=== PATIENT | female | born 1980 | race Two or more races ===

== ENCOUNTER → 2017-02-28 | Outpatient (REF) | payer OTHER | LOC: M LAB REF 12:24 | PROVIDERS: ATTEND Physician Assistant | DX: N39.0 Urinary tract infection, site not specified (principal) ==

== ENCOUNTER → 2019-07-30 | Outpatient (REF) | payer OTHER ==
[~2019-07-30] MED LIST: PHEN1CAP PO; SUMA50TA2; VENTAER INH; ZOLP5TAB; [UNRECOGNIZED DRUG - CODE] PO
== END ==
LOC: M LAB REF 12:21
PROVIDERS: ATTEND Physician Assistant
DX: J02.9 Acute pharyngitis, unspecified (principal); R50.9 Fever, unspecified; R05 Cough
CPT/HCPCS: 87486; 87581; 87633; 87798; U0002

== ENCOUNTER 2019-08-02 10:42 | Emergency (ER) | payer OTHER ==
[~2019-08-02] VITALS: Ht 162.6 cm; Wt 63.6 kg
[2019-08-02] MEDS ORDERED: ZOLP5TAB (10:55)
[2019-08-02] MEDS ORDERED: SUMA50TA2 (10:55)
[2019-08-02] MEDS ORDERED: PHEN1CAP PO (10:55)
[2019-08-02] MEDS ORDERED: [UNRECOGNIZED DRUG - CODE] PO (10:55)
[2019-08-02] MEDS ORDERED: VENTAER INH (12:25)
--- NOTE | 2019-08-02 12:54 | REP ---
CHEST, PORTABLE: There is no evidence of acute infiltrate. No pleural effusion is seen. The heart is normal in size. The mediastinal silhouette is unremarkable. The visualized osseous structures are intact. IMPRESSION: No acute pulmonary disease. Electronically Signed by Star Rangel MD 08/02/2019 03:19 P
[2019-08-02 13:14] VITALS: BP 126/88
== END 2019-08-02 13:21 | disposition home or self-care (01) ==
LOC: M ED 10:42
DX: J06.9 Acute upper respiratory infection, unspecified (principal); B34.9 Viral infection, unspecified; Z88.1 Allergy status to other antibiotic agents; Z88.2 Allergy status to sulfonamides; Z87.891 Personal history of nicotine dependence

== ENCOUNTER → 2019-11-03 | Outpatient (REF) | payer OTHER | LOC: M LAB REF 15:44 | PROVIDERS: ATTEND Physician Assistant | DX: R30.0 Dysuria (principal) ==

== ENCOUNTER → 2019-11-24 | Outpatient (REF) | payer OTHER | LOC: M WUC 20:34 | PROVIDERS: ATTEND Physician Assistant | DX: N39.0 Urinary tract infection, site not specified (principal) ==

== ENCOUNTER → 2019-11-30 | Outpatient (CLI) | payer OTHER ==
--- NOTE | 2020-01-21 12:04 | REP ---
AP AND LATERAL PELVIS X-RAY: 2-VIEWS HISTORY: Concern for IUD placement. Pelvic pain. FINDINGS: AP and lateral views of the pelvis demonstrate an IUD in what appears to be good position just to the right of midline anteriorly in the pelvis. The bowel gas pattern is normal. No bony abnormality is seen. The study is otherwise unremarkable. IMPRESSION: Negative pelvic x-rays. IUD in good position. MTDD
== END ==
LOC: M RAD 11:27
PROVIDERS: ATTEND Physician Assistant
DX: R10.30 Lower abdominal pain, unspecified (principal)

== ENCOUNTER → 2019-12-07 | Outpatient (REF) | payer OTHER ==
[2020-01-03 20:28] LABS: BASO # 0.1 10^3/uL (0.0-0.2); BASO % 1.7 % (0.0-1.0); EOS # 0.2 10^3/uL (0.0-0.5); LYMPH # 1.2 10^3/uL (1.5-5.0); LYMPH % 24.8 % (24.0-44.0); MEAN CORPUSCULAR HEMOGLOBIN 30.2 pg (27.0-33.0); MEAN CORPUSCULAR HGB CONC 33.3 g/dl (32.0-36.5); MEAN CORPUSCULAR VOLUME 90.5 fl (80.0-96.0); MONO # 0.6 10^3/uL (0.0-0.8); MONO % 11.7 % (0.0-5.0); NEUTROPHILS # 2.8 10^3/uL (1.5-8.5); NEUTROPHILS % 57.6 % (36.0-66.0); PLATELET COUNT, AUTOMATED 212 10^3/uL (150-450); RED BLOOD COUNT 4.31 10^6/uL (4.00-5.40)
[2020-01-04 07:30] LABS: WHITE BLOOD COUNT 4.8 10^3/uL (4.0-10.0)
== END ==
LOC: M WUC 14:38
PROVIDERS: ATTEND Physician Assistant
DX: R10.30 Lower abdominal pain, unspecified (principal)

== ENCOUNTER → 2019-12-20 | Outpatient (REF) | payer OTHER | LOC: M LAB REF 12:11 | PROVIDERS: ATTEND Physician Assistant | DX: N39.0 Urinary tract infection, site not specified (principal) ==

== ENCOUNTER → 2020-01-21 | Outpatient (REF) | payer OTHER | LOC: M LAB REF 16:05 | PROVIDERS: ATTEND Physician Assistant | DX: R30.0 Dysuria (principal) ==

== ENCOUNTER → 2020-08-18 | Outpatient (CLI) | payer OTHER | LOC: M LABSMTC 14:30 | PROVIDERS: ATTEND Anesthesiology | DX: Z01.818 Encounter for other preprocedural examination (principal); Z20.822 Contact with and (suspected) exposure to COVID-19 ==

== ENCOUNTER 2020-08-23 12:11 | Day surgery (SDC) | payer OTHER ==
[~2020-08-23] VITALS: Ht 165.1 cm; Wt 68.9 kg
[~2020-08-23 12:11] MED LIST changes: +LR 1,000 ML IV ONE
[2020-08-23] MEDS ORDERED: propofoL 200 MG/20 ML VIAL As Ordered ONE (12:37)
[2020-08-23] MEDS ORDERED: ONDANSETRON 4MG/2ML VIAL As Ordered ONE (12:37)
[2020-08-23] MEDS ORDERED: LIDOCAINE 2% 100MG/5ML SDV (FOR ANES.) As Ordered ONE (12:37)
[2020-08-23] MEDS ORDERED: fentaNYL 100 MCG/2 ML INJECTION (J3010) As Ordered ONE (12:37)
[2020-08-23] MEDS ORDERED: dexameTHASONE 4 MG/ML 1ML VIAL (J1100 PER 1MG) As Ordered ONE (12:37)
[2020-08-23] MEDS ORDERED: MIDAZOLAM INJ 2MG/2ML VIAL (J2250 PER 1MG) As Ordered ONE (12:37)
[2020-08-23] MEDS ORDERED: KETOROLAC 60MG 2ML VIAL As Ordered ONE (12:37)
--- NOTE | 2020-08-23 12:57 | ROOPDOC ---
[facility] Report Of Operation Report of Operation DATE OF PROCEDURE: 08/23/20 PREOPERATIVE DIAGNOSES: 1. Endometrial polyp POSTOPERATIVE DIAGNOSES: 1. Endometrial polyp PROCEDURE PERFORMED: Hysteroscopy, myosure, dilation and curettage. SURGEON: Sana Linares MD ROVER TENDER: None. ANESTHESIA: General via laryngeal mask airway ESTIMATED BLOOD LOSS: 5ml IV FLUIDS: 900 mL of lactated Ringer's solution. URINE OUTPUT: Not obtained. PREOPERATIVE ANTIBIOTICS: None. OPERATIVE FINDINGS: Anterior wall endometrial polyp. Bilateral ostia was visualized. DESCRIPTION OF PROCEDURE: After informed consent was obtained written consent was reviewed, the patient brought to operating room where she was placed under general anesthesia. She was then placed in lithotomy position and was prepped and draped in normal sterile fashion. Time-out in the operating room was then performed identifying the patient, procedure be performed as well as drug allergies. Sinclair speculum was placed revealing the cervix. Anterior lip of the cervix grasped with a single-tooth tenaculum. The uterus then sounded to 7.5 cm. The cervix then sequentially dilated using Hanks dilators. Hysteroscope was then advanced through the cervical os and endometrial cavity was observed with the above-noted findings. Myosure was then advanced. Endometrial polyp was morcellated. Myosure device was removed. Hysteroscope was then removed. Sharp curette was then advanced through the cervical os to the level of the fundus and the uterus curetted in a 360 degree fashion. Tissue was obtained and this was sent to pathology for evaluation. The single-tooth tenaculum was then removed. Tenaculum sites were noted be hemostatic. The speculum was then removed. The patient was then taken out of lithotomy position, was awakened from general anesthesia and taken recovery in stable condition. SANA LINARES MD. Aug 23, 2020 12:57
[2020-08-23 13:04] LABS: HEMATOCRIT 38.8 % (36.0-47.0); MEAN CORPUSCULAR HEMOGLOBIN 31.3 pg (27.0-33.0); MEAN CORPUSCULAR HGB CONC 33.5 g/dl (32.0-36.5); MEAN CORPUSCULAR VOLUME 93.5 fl (80.0-96.0); PLATELET COUNT, AUTOMATED 274 10^3/uL (150-450); RED BLOOD COUNT 4.15 10^6/uL (4.00-5.40); WHITE BLOOD COUNT 3.9 10^3/uL (4.0-10.0)
[2020-08-23] MEDS ORDERED: ePHEDrine SULFATE 25 MG/5 ML(5MG/ML) SYRINGE As Ordered ONE (13:27)
[2020-08-23] MEDS ORDERED: ACETAMINOPHEN 1000MG 100ML IV BTL (OFIRMEV) (J0131 PER 10MG) As Ordered ONE (13:32)
[2020-08-23] MEDS ORDERED: oxyCODONE 5MG TAB PO PRN (14:15)
[2020-08-23] MEDS ORDERED: fentaNYL 100 MCG/2 ML INJECTION (J3010) IV PRN (14:15)
[2020-08-23] MEDS ORDERED: ONDANSETRON 4MG/2ML VIAL IV PRN (14:15)
[2020-08-23] MEDS ORDERED: LR 1,000 ML IV SCH (14:15)
[2020-08-23] MEDS ORDERED: PERCOCET 5MG/325MG TAB PO PRN (15:15)
[2020-08-23 16:00] VITALS: BP 135/81
[2020-08-23] MEDS ORDERED: KETOROLAC 30 MG/ML 1ML VIAL IV PRN (19:00)
== END 2020-08-23 16:02 | disposition home or self-care (01) ==
LOC: M SDC 12:11
PROVIDERS: ATTEND Obstetrics & Gynecology
DX: N84.0 Polyp of corpus uteri (principal); F41.9 Anxiety disorder, unspecified; G43.909 Migraine, unspecified, not intractable, without status migrainosus; F43.10 Post-traumatic stress disorder, unspecified; Z87.440 Personal history of urinary (tract) infections; Z79.899 Other long term (current) drug therapy
CPT/HCPCS: 36415; 58558; 85027; 86850; 86900; 86901; 88305; J0131; J1100; J1885; J2250; J2405; J3010

== ENCOUNTER → 2021-03-03 | Outpatient (CLI) | payer OTHER ==
[~2021-03-03] MED LIST changes: -LR 1,000 ML IV ONE
== END ==
LOC: M LABSMTC 09:50
PROVIDERS: ATTEND Anesthesiology
DX: Z01.812 Encounter for preprocedural laboratory examination (principal); Z20.822 Contact with and (suspected) exposure to COVID-19

== ENCOUNTER 2021-03-07 10:32 | Day surgery (SDC) | payer OTHER ==
[~2021-03-07] VITALS: Ht 165.1 cm; Wt 67.5 kg
[~2021-03-07 10:32] MED LIST changes: +LIDOCAINE 1% MDV 20ML VIAL SQ PRN; +LR 1,000 ML IV ONE
--- OUTSIDE RECORDS SUMMARY | 2021-03-07 10:37 | CCD ---
Author Organization Unknown Address [address] [place] [address] Phone [phone] Care Team Providers Care Brickmason Contractor Name Role Phone [place] C[place] Unavailable Unavailable Allergies Code Code System Name Reaction Severity Status Onset NKDA Medications Name Status Start Date Stop Date cephalexin 500 mg capsule TAKE ONE CAPSULE BY MOUTH EVERY 12 HOURS FOR 7 DAYS Completed 11/22/2020 Cetrotide 0.25 mg subcutaneous kit Active Not available chorionic gonadotropin, human 10,000 unit intramuscular solution Active Not available ciprofloxacin 500 mg tablet TAKE 1 TABLET BY MOUTH TWICE A DAY FOR 5 DAYS Completed 11/22/2020 fluconazole 150 mg tablet ONE TABLET BY MOUTH NOW MAY REPEAT IN ONE WEEK NEEDED Completed 11/22/2020 Gonal-F RFF Redi-Ject 900 unit/1.5 mL subcutaneous pen injector Active Not available immunization admin fee ADMINISTRATION FEE Completed 11/22/2020 Isibloom 0.15 mg-0.03 mg tablet TAKE ONE TABLET BY MOUTH EVERY DAY ACTIVE PILLS ONLY Active Not available leuprolide 1 mg/0.2 mL subcutaneous kit Active Not available Menopur 75 unit subcutaneous solution Active Not available nitrofurantoin macrocrystal 100 mg capsu le TAKE ONE CAPSULE BY MOUTH EVERY DAY NEEDED Completed 11/22/2020 nitrofurantoin monohydrate/macrocrystals 100 mg capsule TAKE ONE CAPSULE BY MOUTH TWICE A DAY FOR 7 DAYS Completed 11/22/2020 ondansetron HCl 4 mg tablet TAKE ONE TABLET BY MOUTH EVERY 8 HOURS FOR NAUSEA Completed 11/22/2020 sulfamethoxazole 800 mg-trimethoprim 160 mg tablet TAKE ONE TABLET BY MOUTH TWICE A DAY FOR 5 DAYS Completed 11/22/2020 sumatriptan 50 mg tablet TAKE 1 TABLET BY MOUTH DIRECTED AT ONSET OF HEADACHE MAY REPEAT AFTER 2 HOURS IF HEADACHE PERSISTS Active Not available Ventolin HFA 90 mcg/actuation aerosol in haler INHALE TWO PUFFS BY MOUTH EVERY 4 TO 6 HOURS NEEDED FOR WHEEZING Completed 11/22/2020 Notes: Fertility meds Problems Name Status Onset Date Source SNOMED CT Concept Unknown 12/10/2019 History Evaluation Procedure Unknown 12/10/2019 History 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 [address] [facility]: [address] [place] [address] Normal Red Blood Count 4.15 10 4.00-5.[address] [facility]: [address] [place] [address] Normal Hemoglobin 13.0 g/dL 12.0-15.5 g/dL [facility]: [address] [place] [address] Normal Hematocrit 38.8 % 36.0-47.0 % [facility]: [address] [place] [address] Normal Mean Corpuscular Volume 93.5 fL 80.0 -96.[address] [facility]: [address] [place] [address] Normal Mean Corpuscular Hemoglobin 31.3 pg 27.0-33.[address] [facility]: [address] [place] [address] Normal Mean Corpuscular HGB Conc 33.5 g/dL 32.0-36.5 g/dL [facility]: [address] [place] [address] Normal Red Cell Distribution Width 11.9 % 1 1.5-14.5 % [facility]: [address] [place] [address] Normal Platelet Count, Automated 274 10 150 -[address] [facility]: [address] [place] [address] Normal Nucleated Red Blood Cell % 0.0 % 0- 0 % [facility]: [address] [place] [address] 08/23/2020 Type + Screen, Serum Normal Blood Type O posit sydnee [facility]: [address] [place] [address] Normal Ab Screen (Indirect Vivi)vis negat sydnee [facility]: [address] [place] [address] Past Encounters 02/02/2021 Meibomian Gland Dysfunction; Adjustment Disorder with Mixed Emotional Features [place] Cee, RPA-C: [address] [facility], [facility] [address], [place] [address], Ph. 12/15/2020 Recurrent Urinary Tract Infection [place] Cee, RPA-C: [address] [facility], [facility] [address], [place] [address], Ph. 11/22/2020 Bilateral Tinnitus; Allergic Rhinitis; Migraine [place] Cee, RPA-C: [address] [facility], [facility] [address], [place] [address], Ph. 08/08/2020 Administration of SARS-CoV-2 Antigen Vaccine Radha Rodney, INSULATION BOARD HEAD SAW OPERATOR-C: [address] [place] [address], Ph. 07/12/2020 Administration of Measles and Mumps and Rubella Vaccine Mirela Toro, RPA-C: [address] [facility], [facility] [address], [place] [address], Ph. Social History Tobacco Smoking Status Never Smoker Vaccine List Vaccine Type COVID-19 vaccine, vector-nr, rS-Ad26, PF , 0.5 mL .5 mL MMR .5 mL Plan of Care Reminders Provider Appointments None recorded. Lab None recorded. Referral None recorded. Procedures None recorded. Surgeries None recorded. Imaging None recorded. Vitals 02/02/2021 03:50PM ESTABLISHED [id number] Height Weight BMI Blood Pressure 65 in 147 lbs 6.4 oz 24.5 kg/m2 136/72 mm[Hg ] 12/15/2020 01:00PM SAME DAY 20 Height Weight BMI Blood Pressure 65 in 147 lbs 16 oz 24.6 kg/m2 114/71 mm[Hg] 11/22/2020 03:30PM ESTABLISHED [id number] Height Weight BMI Blood Pressure 65 in 151 lbs 25.1 kg/m2 117/74 mm[Hg] 12/10/2019 Height Weight BMI Blood Pressure 65 in 148 lbs 2.08 oz 24.74 kg/m2 116/76 mm[H g] 07/30/2019 Blood Pressure 129/85 mm[Hg]
--- OUTSIDE RECORDS SUMMARY | 2021-03-07 10:37 | CCD | Continuity of Care Document ---
Author Author Marisela PERRY PA Organization Unknown Address [address] [place], [place] [address] [address] Phone [phone] Care Team Providers Care Valance Cutter Name Role Phone [facility] AUTM [phone] Problems Description No Information Available Social History Type Date Description Comments Sex Unknown ETOH Use Occasionally consumes alcohol Tobacco Use Start: Unknown End: Unknown Patient is a former smoker quit 2012 Tobacco Use Start: Unknown The Patient Has Never Vaped Smoking Status Reviewed: 01/21/20 The Patient Has Never Vaped Allergies, Adverse Reactions, Alerts Description No Known Drug Allergies Medications Active Medications SIG Qnty Indications Ordering Provide r Date Sumatriptan Succinate 100mg Tablet s 1 tab by mouth as needed at onset of symptoms, may repeat in 2 hours Unknown Nicotine Mini 4mg Lozenges Unknown Medications Administered in Office Medication SIG Qnty Indications Ordering Provider Date Rocephin/Ceftriaxone Sodium Injection Pe r 250 MG Injection KEKE Novoa 0 11/29/2019 Immunizations Description No Information Available Vital Signs Date Vital Result Comment 01/21/2020 1:29pm BP Systolic 128 mmHg BP Diastolic 80 mmHg Heart Rate 78 /min Respiratory Rate 18 /min O2 % BldC Oximetry 98 % Body Temperature 98.2 F Weight 149.00 lb Height 65 inches 5'5" BMI (Body Mass Index) 24.8 kg/m2 Pain Level 3 12/20/2019 11:29am BP Systolic 126 mmHg BP Diastolic 81 mmHg Heart Rate 64 /min Respiratory Rate 20 /min O2 % BldC Oximetry 98 % Body Temperature 97.7 F Weight 149.00 lb Height 65 inches 5'5" BMI (Body Mass Index) 24.8 kg/m2 Pain Level 4 Results Description No Information Available Procedures Description No Information Available Medical Devices Description No Information Available Encounters Description No Information Available Assessments Date Code Description Provider 01/07/2021 Z20.828 Contact with and (ramon spected) exposure to other viral communicable diseases KEKE Novoa Plan of Treatment No Information Available Functional Status Description No Information Available Mental Status Description No Information Available Referrals Description No Information Available
--- OUTSIDE RECORDS SUMMARY | 2021-03-07 10:37 | CCD ---
Author Organization Unknown Address [address] [place] [address] Phone [phone] Care Team Providers Care Air Hose Coupler Name Role Phone [place] Cee Unavailable Unavailable Allergies Code Code System Name Reaction Severity Status Onset NKDA Medications Name Status Start Date Stop Date cephalexin 500 mg capsule TAKE ONE CAPSULE BY MOUTH EVERY 12 HOURS FOR 7 DAYS Completed 11/22/2020 Cetrotide 0.25 mg subcutaneous kit Completed 11/22/2020 chorionic gonadotropin, human 10,000 unit intramuscular solution Completed 11/22/2020 ciprofloxacin 500 mg tablet TAKE 1 TABLET BY MOUTH TWICE A DAY FOR 5 DAYS Completed 11/22/2020 fluconazole 150 mg tablet ONE TABLET BY MOUTH NOW MAY REPEAT IN ONE WEEK NEEDED Completed 11/22/2020 Gonal-F RFF Redi-Ject 900 unit/1.5 mL subcutaneous pen injector Completed 11/22/2020 immunization admin fee ADMINISTRATION FEE Completed 11/22/2020 Isibloom 0.15 mg-0.03 mg tablet Active 11/22/2020 Not available leuprolide 1 mg/0.2 mL subcutaneous kit Completed 11/22/2020 Menopur 75 unit subcutaneous solution Completed 11/22/2020 nitrofurantoin macrocrystal 100 mg capsu le TAKE [...] 6 HOURS NEEDED FOR WHEEZING Completed 11/22/2020 Problems Name Status Onset Date Source SNOMED CT Concept Active 12/10/2019 History Evaluation Procedure Active 12/10/2019 History Migraine Active 07/28/2020 Procedures Notes: No known surgical history Results Lab Results Date Name Specimen Result Interpretation Description Value Range Status Address 08/23/2020 Cbc Low White Blood Count 3.9 10 4.0-10. 0 10 [facility]: [address] [place] [address] Normal Red Blood Count 4.15 10 4.00-5.40 10 [facility]: [address] [place] [address] Normal Hemoglobin 13.0 g/dL 12.0-15.5 g/dL [facility]: [address] [place] [address] Normal Hematocrit 38.8 % 36.0-47.0 % [facility]: [address] [place] [address] Normal Mean Corpuscular Volume 93.5 fL 80.0 -96.0 fL [facility]: [address] [place] [address] Normal Mean Corpuscular Hemoglobin 31.3 pg 27.0-33.0 pg [facility]: [address] [place] [address] Normal Mean Corpuscular HGB Conc 33.5 g/dL 32.0-36.5 g/dL [facility]: [address] [place] [address] Normal Red Cell Distribution Width 11.9 % 1 1.5-14.5 % [facility]: [address] [place] [address] Normal Platelet Count, Automated 274 10 150 -450 10 [facility]: [address] [place] [address] Normal Nucleated Red Blood Cell % 0.0 % 0- 0 % [facility]: [address] [place] [address] 08/23/2020 Type + Screen, Serum Normal Blood Type O posit sydnee [facility]: [address] [place] [address] Normal Ab Screen (Indirect Vivi)vis negat sydnee [facility]: [address] [place] [address] Past Encounters 11/22/2020 Bilateral Tinnitus; Allergic Rhinitis; Migraine [place] Cee, RPA-C: [address] [facility], [address], [place] [address], Ph. 08/08/2020 SARS-CoV-2 Vaccination VINITA Conte-C: [address] [place] [address], Ph. 07/12/2020 Administration of Measles and Mumps and Rubella Vaccine Mirela Toro RPA-C: [address] [facility], [address], [place] [address], Ph. Social History None recorded. Vaccine List Vaccine Type COVID-19 vaccine, vector-nr, rS-Ad26, PF , 0.5 mL .5 mL MMR .5 mL Plan of Care Reminders Provider Appointments None recorded. Lab None recorded. Referral None recorded. Procedures None recorded. Surgeries None recorded. Imaging None recorded. Vitals 11/22/2020 03:30PM ESTABLISHED [id number] Height Weight BMI Blood Pressure 65 in 151 lbs 25.1 kg/m2 117/74 mm[Hg] 12/10/2019 Height Weight BMI Blood Pressure 65 in 148 lbs 2.08 oz 24.74 kg/m2 116/76 mm[H g] 07/30/2019 Blood Pressure 129/85 mm[Hg]
--- OUTSIDE RECORDS SUMMARY | 2021-03-07 10:37 | CCD ---
Author Organization Unknown Address [address] [place] [address] Phone [phone] Care Team Providers Care Service Desk Associate Name Role Phone [place] Cee Unavailable Unavailable [...] Count 3.9 10 4.0-10. [address] [facility] [place]: [address] [place] [address] Normal Red Blood Count 4.15 10 4.00-5.[address] [facility] [place]: [address] [place] [address] Normal Hemoglobin 13.0 g/dL 12.0-15.5 g/dL [facility] [place]: [address] [place] [address] Normal Hematocrit 38.8 % 36.0-47.0 % [facility] [place]: [address] [place] [address] Normal Mean Corpuscular Volume 93.5 fL 80.0 -96.[address] [facility] [place]: [address] [place] [address] Normal Mean Corpuscular Hemoglobin 31.3 pg 27.0-33.[address] [facility] [place]: [address] [place] [address] Normal Mean Corpuscular HGB Conc 33.5 g/dL 32.0-36.5 g/dL [facility] [place]: [address] [place] [address] Normal Red Cell Distribution Width 11.9 % 1 1.5-14.5 % [facility] [place]: [address] [place] [address] Normal Platelet Count, Automated 274 10 150 -[address] [facility] [place]: [address] [place] [address] Normal Nucleated Red Blood Cell % 0.0 % 0- 0 % [facility] [place]: [address] [place] [address] 08/23/2020 Type + Screen, Serum Normal Blood Type O posit sydnee [facility] [place]: [address] [place] [address] Normal Ab Screen (Indirect Vivi)vis negat sydnee [facility] [place]: [address] [place] [address] Past Encounters 12/15/2020 Recurrent Urinary Tract Infection [place] Cee, RPA-C: [address] [facility], [facility] [address], [place] [address], Ph. 11/22/2020 Bilateral Tinnitus; Allergic Rhinitis; Migraine [place] Cee, RPA-C: [address] [facility], [facility] [address], [place] [address], Ph. 08/08/2020 SARS-CoV-2 Vaccination Radha Stevens, MOLD RELEASE WORKER-C: [address] [place] [address], Ph. 07/12/2020 Administration of Measles and Mumps and Rubella Vaccine Mirela Toro, RPA-C: [address] [facility], [facility] [address], [place] [address], Ph. Social History Tobacco Smoking Status Never Smoker Vaccine List Vaccine Type COVID-19 vaccine, vector-nr, rS-Ad26, PF , 0.5 mL .5 mL MMR .5 mL Plan of Care Reminders Provider Appointments None recorded. Lab None recorded. Referral None recorded. Procedures None recorded. Surgeries None recorded. Imaging None recorded. Vitals 12/15/2020 01:00PM SAME DAY 20 Height Weight BMI Blood Pressure 65 in 147 lbs 16 oz 24.6 kg/m2 114/71 mm[Hg] 11/22/2020 03:30PM ESTABLISHED [id number] Height Weight BMI Blood Pressure 65 in 151 lbs 25.1 kg/m2 117/74 mm[Hg] 12/10/2019 Height Weight BMI Blood Pressure 65 in 148 lbs 2.08 oz 24.74 kg/m2 116/76 mm[H g] 07/30/2019 Blood Pressure 129/85 mm[Hg]
--- OUTSIDE RECORDS SUMMARY | 2021-03-07 10:37 | CCD | Continuity of Care Document ---
Author Author Marisela PERRY PA Organization Unknown Address [address] [place], [place] [address] [place] [address] Phone [phone] Care Team Providers Care Emr Analyst Name Role Phone [facility] AUTM [phone] Problems Description No Information Available Social History [...] Available Encounters Description No Information Available Assessments Description No Information Available Plan of Treatment No Information Available Functional Status Description No Information Available Mental Status Description No Information Available Referrals Description No Information Available
--- OUTSIDE RECORDS SUMMARY | 2021-03-07 10:38 | CCD ---
Author Author [facility] Organization [facility] Address Unknown Phone Unavailable Care Team Providers Care Distance Education Teacher Name Role Phone CEE, CYN HOUSTON RPA-C Unavailable Unavailable CEE, CYN HOUSTON RPA-C Unavailable Unavailable CEE, CYN HOUSTON RPA-C Unavailable Unavailable CEE, CYN HOUSTON RPA-C Unavailable Unavailable CEE, CYN HOUSTON RPA-C Unavailable Unavailable CEE, CYN HOUSTON RPA-C Unavailable Unavailable CEE, CYN HOU[place]ON RPA-C Unavailable Unavailable CEE, CYN HOUSTON RPA-C Unavailable Unavailable CEE, CYN HOUSTON RPA-C Unavailable Unavailable CEE, CYN HOUSTON RPA-C Unavailable Unavailable CEE, CYN HOU[place]ON RPA-C Unavailable Unavailable CEE, CYN HOUSTON RPA-C Unavailable Unavailable CEE, CYN HOUSTON RPA-C Unavailable Unavailable CEE, CYN HOUSTON RPA-C Unavailable Unavailable CEE, CYN HOUSTON RPA-C Unavailable Unavailable CEE, CYN HOUSTON RPA-C Unavailable Unavailable CEE, CYN HOUSTON RPA-C Unavailable Unavailable CEE, CYN HOUSTON RPA-C Unavailable Unavailable CEE, CYN HOUSTON RPA-C Unavailable Unavailable CEE, CYN HOUSTON RPA-C Unavailable Unavailable CEE, CYN HOUSTON RPA-C Unavailable Unavailable CEE, CNY HOUSTON RPA-C Unavailable Unavailable CEE, CYN HOUSTON RPA-C Unavailable Unavailable CEE, CYN HOUSTON RPA-C Unavailable Unavailable CEE, CYN HOUSTON RPA-C Unavailable Unavailable CEE, CYN HOUSTON RPA-C Unavailable Unavailable CEE, CYN HOUSTON RPA-C Unavailable Unavailable CEE, CYN HOUSTON RPA-C Unavailable Unavailable CEE, CYN HOUSTON RPA-C Unavailable Unavailable CEE, CYN HOUSTON RPA-C Unavailable Unavailable CEE, CYN HOUSTON RPA-C Unavailable Unavailable CEE, CYN HOUSTON RPA-C Unavailable Unavailable CEE, CYN HOUSTON RPA-C Unavailable Unavailable CEE, CYN HOUSTON RPA-C Unavailable Unavailable CEE, CYN HOUSTON RPA-C Unavailable Unavailable CEE, CYN HOUSTON RPA-C Unavailable Unavailable CEE, CYN HOUSTON RPA-C Unavailable Unavailable CEE, CYN HOUSTON RPA-C Unavailable Unavailable CEE, CYN HOUSTON RPA-C Unavailable Unavailable CEE, CYN HOUSTON RPA-C Unavailable Unavailable CEE, CYN HOUSTON RPA-C Unavailable Unavailable CEE, CYN HOUSTON RPA-C Unavailable Unavailable CEE, CYN HOUSTON RPA-C Unavailable Unavailable Marcos, Guillermina Womack PA Unavailable Unavailable Marcos, Guillermina Womack PA Unavailable Unavailable Marcos, Guillermina Womack PA Unavailable Unavailable Marcos, Guillermina Womack PA Unavailable Unavailable Marcos, Guillermina Womack PA Unavailable Unavailable Marcos, Guillermina Womack PA Unavailable Unavailable Marcos, Guillermina Womack PA Unavailable Unavailable Marcos, Guillermina Womack PA Unavailable Unavailable Marcos, Guillermina Womack PA Unavailable Unavailable Marcos, Guillermina Womack PA Unavailable Unavailable [facility], Britany Unavailable [facility], Britany Unavailable Mahany, Britany Unavailable Mahany, Britany Unavailable Mahany, Britany Unavailable Mahany, Britany Unavailable Mahany, Britany Unavailable Mahany, Britany Unavailable Mahany, Britany Unavailable Mahany, Britany Unavailable Mahany, Britany Unavailable Mahany, Britany Unavailable Mahany, Britany Unavailable Mahany, Britany Unavailable Mahany, Britany Unavailable Mahany, Britany Unavailable Mahany, Britany Unavailable Mahany, Britany Unavailable Mahany, Britany Unavailable Mahany, Britany Unavailable Mahany, Britany Unavailable CHRIS, ALISSA Unavailable Unavailable CHRIS, ALISSA Unavailable Unavailable CHRIS, ALISSA Unavailable Unavailable CHRIS, ALISSA Unavailable Unavailable CHRIS, ALISSA Unavailable Unavailable CHRIS, ALISSA Unavailable Unavailable CHRIS, ALISSA Unavailable Unavailable CHRIS, ALISSA Unavailable Unavailable CHRIS, ALISSA Unavailable Unavailable CHRIS, ALISSA Unavailable Unavailable CHRIS, ALISSA Unavailable Unavailable CHRIS, ALISSA Unavailable Unavailable CHRIS, ALISSA Unavailable Unavailable CHRIS, ALISSA Unavailable Unavailable CHRIS, ALISSA Unavailable Unavailable CHRIS, ALISSA Unavailable Unavailable CHRIS, ALISSA Unavailable Unavailable CHRIS, ALISSA Unavailable Unavailable CHRIS, ALISSA Unavailable Unavailable CHRIS, ALISSA Unavailable Unavailable CHRIS, ALISSA Unavailable Unavailable CHRIS, ALISSA Unavailable Unavailable CHRIS, ALISSA Unavailable Unavailable CHRIS, ALISSA Unavailable Unavailable CHRIS, ALISSA Unavailable Unavailable CHRIS, ALISSA Unavailable Unavailable CHRIS, ALISSA Unavailable Unavailable Stevens, Denver Radha Unavailable Unavailable Stevens, Denver Radha Unavailable Unavailable Stevens, Denver Radha Unavailable Unavailable Stevens, Denver Radha Unavailable Unavailable Stevens, Denver Radha Unavailable Unavailable Stevens, Denver Radha Unavailable Unavailable Stevens, Denver Radha Unavailable Unavailable Stevens, Denver Radha Unavailable Unavailable Stevens, Denver Radha Unavailable Unavailable Stevens, Denver Radha Unavailable Unavailable Stevens, Denver Radha Unavailable Unavailable Stevens, Denver Ardha Unavailable Unavailable Stevens, Denver Radha Unavailable Unavailable ALEKSICASHISH MD Unavailable Unavailable ALEKSICASHISH MD Unavailable Unavailable ALEKSIC ILICELSA MD Unavailable Unavailable ALEKSIC ILICELSA MD Unavailable Unavailable ALEKSIC ILICELSA MD Unavailable Unavailable ALEKSICASHISH MD Unavailable Unavailable ALEKSICASHISH MD Unavailable Unavailable ALEKSICASHISH MD Unavailable Unavailable ALEKSIC ILICELSA MD Unavailable Unavailable ALEKSIC ILICELSA MD Unavailable Unavailable ALEKSIC ILICELSA MD Unavailable Unavailable ALEKSIC ILICELSA MD Unavailable Unavailable ALEKSIC ILICELSA MD Unavailable Unavailable ALEKSIC ILICELSA MD Unavailable Unavailable ALEKSIC ILICELSA MD Unavailable Unavailable ALEKSIC ILICELSA MD Unavailable Unavailable ALEKSIC ILICELSA MD Unavailable Unavailable ALEKSIC ILICELSA MD Unavailable Unavailable ALEKSIC ILICELSA MD Unavailable Unavailable ALEKSIC ILICELSA MD Unavailable Unavailable ALEKSIC ILICELSA MD Unavailable Unavailable ALEKSIC ILICELSA MD Unavailable Unavailable ALEKSIC ILICELSA MD Unavailable Unavailable ALEKSIC ILICELSA MD Unavailable Unavailable ALEKSIC ILICELSA MD Unavailable Unavailable ALEKSIC ILICELSA MD Unavailable Unavailable ALEKSIC ILICELSA MD Unavailable Unavailable ALEKSIC ILICELSA MD Unavailable Unavailable ALEKSIC ILICELSA MD Unavailable Unavailable ALEKSIC ILICELSA MD Unavailable Unavailable ALEKSIC ILICELSA MD Unavailable Unavailable ALEKSIC ILICELSA MD Unavailable Unavailable ALEKSIC ILICELSA MD Unavailable Unavailable ALEKSIC ILICELSA MD Unavailable Unavailable ALEKSICASHISH MD Unavailable Unavailable Re-disclosure Warning The records that you are about to access may contain information from federally-assisted alcohol or drug abuse programs. If such information is present, then the following federally mandated warning applies: This information has been disclosed to you from records protected by federal confidentiality rules (42 CFR part 2). The federal rules prohibit you from making any further disclosure of this information unless further disclosure is expressly permitted by the written consent of the person to whom it pertains or as otherwise permitted by 42 CFR part 2. A general authorization for the release of medical or other information is NOT sufficient for this purpose. The Federal rules restrict any use of the information to criminally investigate or prosecute any alcohol or drug abuse patient.The records that you are about to access may contain highly sensitive health information, the redisclosure of which is protected by Article 27-F of the [facility] Public Health law. If you continue you may have access to information: Regarding HIV / AIDS; Provided by facilities licensed or operated by the [facility] Office of Mental Health; or Provided by the [facility] Office for People With Developmental Disabilities. If such information is present, then the following [facility] mandated warning applies: This information has been disclosed to you from confidential records which are protected by state law. State law prohibits you from making any further disclosure of this information without the specific written consent of the person to whom it pertains, or as otherwise permitted by law. Any unauthorized further disclosure in violation of state law may result in a fine or longterm sentence or both. A general authorization for the release of medical or other information is NOT sufficient authorization for further disc losure. Allergies and Adverse Reactions Type Description Substance Reaction Status Data Source(s ) Allergy to substance Allergy to substance Allergy to substance ANGELITA ([facility]) Family History Family Member Name Family Member Gender Family Member Status Date o f Status Description Data Source(s) Unknown Unknown Problem MEDENT ([facility]) Unknown Unknown Problem MEDENT ([facility] mgf Unknown Male Problem MEDENT ([facility] Unknown Male Problem MEDENT ([facility]) Encounters Encounter Providers Location Date Indications Data Source(s ) Unknown [address] [facility] [address] 03/02/2021 12:00:00 AM EDT eCW1 ([facility]) [place] Cee, RPA-C: [address], [place] [address], Ph. Attender: HOUST[place] CEE RPA-C [facility] Medical 02/02/2021 12:00:00 AM EDT ANGELITA ([facility]) [place] Cee, RPA-C: [address], [place] [address], Ph. Attender: [place] CEE RPA-C [facility] Medical 12/15/2020 12:00:00 AM EDT ANGELITA ([facility]) [place] Cee, RPA-C: [address], [place] [address], Ph. Attender: [place] CEE RPA-C [facility] Medical 12/15/2020 12:00:00 AM EDT ANGELITA ([facility]) [place] Cee, RPA-C: [address], [place] [address], Ph. Attender: [place]ST[place] CEE RPA-C [facility] Medical 11/22/2020 12:00:00 AM EDT ANGELITA ([facility]) [place] Cee, RPA-C: [address], [place] [address], Ph. Attender: [place] CEE RPA-C [facility] Medical 11/22/2020 12:00:00 AM EDT ANGELITA ([facility]) [place] Cee RPA-C: [address], [place] [address], Ph. Attender: HOUSTON HERNANDEZC [facility] Medical 11/22/2020 12:00:00 AM EDT ANGELITA ([facility]) CINDY ConteC: [address] [place] [address], Ph. Attender: Radha Stevens [facility] Medical 08/08/2020 12:00:00 AM EDT ANGELITA ([facility]) CINDY ConteC: [address] [place] [address], Ph. Attender: Radha Stevens [facility] Medical 08/08/2020 12:00:00 AM EDT ANGELITA ([facility]) CINDY ConteC: [address] [place] [address], Ph. Attender: Radha Stevens [facility] Medical 08/08/2020 12:00:00 AM EDT ANGELITA ([facility]) CINDY ConteC: [address] [place] [address], Ph. Attender: Radha Stevens [facility] Medical 08/08/2020 12:00:00 AM EDT ANGELITA ([facility]) Unknown [address] [facility] [address] 07/27/2020 12:00:00 AM EDT eCW1 ([facility]) Out[place] [address] [facility] [place] [address] 07/21/2020 12:00:00 AM EDT eCW1 ([facility]) Referrer: Britayn Nuñez 07/19/2020 01:37:02 PM E DT Sema4 ([facility]) Alissa Chris, RPA-C: [address], [place] [address], Ph. Attender: ALISSA [facility]TER[facility]INS [facility] Medical 07/12/2020 12:00:00 AM EST ANGELITA ([facility]) Alissa Cortez RPA-C: [address], [place] [address], Ph. Attender: ALISSA [facility] Medical 07/12/2020 12:00:00 AM EST ANGELITA ([facility]) Alissa Chris RPA-C: [address], [place] [address], Ph. Attender: ALISSANEEL CHRIS [facility] Medical 07/12/2020 12:00:00 AM EST ANGELITA ([facility]) Alissa Chris RPA-C: [address], [place] [address], Ph. Attender: ALISSA WALTERSBINS [facility] Medical 07/12/2020 12:00:00 AM [facility] ([facility]) [facility] EN[facility] 05/10/2020 12:00:00 AM EST eCW1 ([facility]) Outpatient [facility] 05/04/2020 12:00:00 AM EST eCW1 ([facility]) Outpatient Attender: ASHISH Jane/ AKathrynP. Urolog y 02/11/2020 01:30:00 PM EDT MEDENT ([facility]) Outpatient Attender: Shanta irizarry 01/21/2020 02:00:00 PM EDT MEDENT ([facility]) Immunizations Vaccine Date Status Description Data Source(s) COVID-19 vaccine, vector-nr, rS-Ad26, PF, 0.5 mL 08/09/2020 10:25:09 AM EDT completed .5 mL [facility] ([facility]) COVID-19 vaccine, vector-nr, rS-Ad26, PF, 0.5 mL 08/09/2020 10:25:09 AM EDT completed .5 mL [facility] ([facility]) COVID-19 vaccine, vector-nr, rS-Ad26, PF, 0.5 mL 08/09/2020 10:25:09 AM EDT completed .5 mL ANGELITA ([facility]) COVID-19 vaccine, vector-nr, rS-Ad26, PF, 0.5 mL 08/09/2020 10:25:09 AM EDT completed .5 mL [facility] ([facility]) COVID-19 VACCINE Abigail 08/09/2020 12:00:00 AM EDT completed [place] Vaccine Series Complete: YESThis Data wa s Submitted to [facility] Via [employer]. MMR 07/12/2020 12:30:00 PM EST completed 07/12/2020 0.5 mL [facility] ([facility]) MMR 07/12/2020 12:30:00 PM EST completed 07/12/2020 0.5 mL [facility] ([facility]) MMR 07/12/2020 12:30:00 PM EST completed 07/12/2020 0.5 mL ANGELITA ([facility]) MMR 07/12/2020 12:30:00 PM EST completed 07/12/2020 0.5 mL [facility] ([facility]) INFLUENZA VIRUS VACCINE QUADRIVAL (6 MOS AND UP)/PF 03/21/2020 12:00:00 AM EST completed [facility] Medications Medication Brand Name Start Date Product Form Dose Route Admi nistrative Instructions Pharmacy Instructions Status Indications Reaction Description Data Source(s) Isibloom 0.15 mg-0.03 mg tablet [id number] 11/22/2020 12:00:00 AM EDT completed Isibloom 0.15 mg-0.03 mg tablet ANGELITA ([facility]) Isibloom 0.15 mg-0.03 mg tablet [id number] 11/22/2020 12:00:00 AM EDT completed Isibloom 0.15 mg-0.03 mg tablet ANGELITA ([facility]) 50 mg 10/27/2020 12:00:00 AM EDT tablet 6 TAKE 1 TABLET BY MOUTH DIRECTED AT ONSET OF HEADACHE MAY REPEAT AFTER 2 HOURS IF HEADACHE PERSISTS TAKE 1 TABLET BY MOUTH DIRECTED AT ONSET OF HEADACHE MAY REPEAT AFTER 2 HOURS IF HEADACHE PERSISTS SOLD: 10/28/2020 [facility] 50 mg 10/27/2020 12:00:00 AM EDT tablet 6 TAKE 1 TABLET BY MOUTH DIRECTED AT ONSET OF HEADACHE MAY REPEAT AFTER 2 HOURS IF HEADACHE PERSISTS TAKE 1 TABLET BY MOUTH DIRECTED AT ONSET OF HEADACHE MAY REPEAT AFTER 2 HOURS IF HEADACHE PERSISTS SOLD: 12/03/2020 [facility] 50 mg 07/29/2020 12:00:00 AM EDT tablet 6 TAKE ONE TABLET BY MOUTH DIRECTED AT ONSET OF HEADACHE MAY REPEAT AFTER 2 HOURS IF HEADACHE PERSISTS TAKE ONE TABLET BY MOUTH DIRECTED AT ONSET OF HEADACHE MAY REPEAT AFTER 2 HOURS IF HEADACHE PERSISTS SOLD: 07/31/2020 [facility] 50 mg 05/05/2020 12:00:00 AM EST tablet 6 TAKE 1 TABLET BY MOUTH AT ONSET OF HEADACHE MAY REPEAT AFTER 2 HOURS IF HEADACHE PERSISTS DIRECTED TAKE 1 TABLET BY MOUTH AT ONSET OF HEADACHE MAY REPEAT AFTER 2 HOURS IF HEADACHE PERSISTS DIRECTED SOLD: 05/10/2020 [facility] 50 mg 03/31/2020 12:00:00 AM EST tablet 6 TAKE ONE TABLET BY MOUTH AT ONSET OF HEADACHE, MAY REPEAT IN TWO HOURS IF NECESSARY TAKE ONE TABLET BY MOUTH AT ONSET OF HEADACHE, MAY REPEAT IN TWO HOURS IF NECESSARY SOLD: 03/31/2020 [facility] . UNIT 03/21/2020 12:00:00 AM EST Injectable 1 AD MINISTRATION FEE ADMINISTRATION FEE SOLD: 03/21/2020 [facility] NITROFURANTOIN, MACROCRYSTALS 100 MG Oral Capsule Nitrofuran toin Macrocrystal 02/11/2020 12:00:00 AM EDT ORAL active MEDENT ([facility]) 100 mg 01/21/2020 12:00:00 AM EDT capsule 14 TAKE ONE CAPSULE BY MOUTH TWICE A DAY FOR 7 DAYS TAKE ONE CAPSULE BY MOUTH TWICE A DAY FOR 7 DAYS SOLD: 01/21/2020 [facility] NITROFURANTOIN, MACROCRYSTALS 25 MG / Ni trofurantoin, Monohydrate 75 MG Oral Capsule Nitrofurantoin Monohydrate/Macrocrystals 01/21/2020 12:00:00 AM EDT active MEDENT ([facility]) immunization admin fee ADMINISTRATION FEE completed immunization admin fee ANGELITA ([facility]) NITROFURANTOIN, MACROCRYSTALS 100 MG Ora l Capsule nitrofurantoin macrocrystal 100 mg capsule TAKE ONE CAPSULE BY MOUTH EVERY DAY NEEDED nitrofurantoin macrocrystal 100 mg capsule TAKE ONE CAPSULE BY MOUTH EVERY DAY NEEDED completed nitrofurantoin, macr ocrystals 100 MG Oral Capsule ANGELITA ([facility]) immunization admin fee ADMINISTRATION FEE completed immunization admin fee [facility] ([facility]) Leuprolide Acetate 5 MG/ML Injectable So lution leuprolide 1 mg/0.2 mL subcutaneous kit leuprolide 1 mg/0.2 mL subcutaneous kit completed leuprolide acetate 5 MG/ML Injectable So lution [facility] ([facility]) 200 ACTUAT Albuterol 0.09 MG/ACTUAT Mete red Dose Inhaler [Ventolin] Ventolin HFA 90 mcg/actuation aerosol inhaler INHALE TWO PUFFS BY MOUTH EVERY 4 TO 6 HOURS NEEDED FOR WHEEZING Ventolin HFA 90 mcg/actuation aerosol in haler INHALE TWO PUFFS BY MOUTH EVERY 4 TO 6 HOURS NEEDED FOR WHEEZING completed [id number] 200 ACTUAT albuter ol 0.09 MG/ACTUAT Metered Dose Inhaler [Ventolin] [facility] ([facility]) Follicle Stimulating Hormone 75 UNT/ML / Luteinizing Hormone 75 UNT/ML Injectable Solution [Menopur] Menopur 75 unit subcutaneous solution Menopur 75 unit subcutaneous solution completed follicle stimulating hormone 75 UNT / luteinizing hormone 75 UNT Injection [Menopur] [facility] ([facility]) Follicle Stimulating Hormone 75 UNT/ML / Luteinizing Hormone 75 UNT/ML Injectable Solution [Menopur] Menopur 75 unit subcutaneous solution Menopur 75 unit subcutaneous solution completed follicle stimulating hormone 75 UNT / luteinizing hormone 75 UNT Injection [Menopur] [facility] ([facility]) Fluconazole 150 MG Oral Tablet fluconazo le 150 mg tablet ONE TABLET BY MOUTH NOW MAY REPEAT IN ONE WEEK NEEDED fluconazole 150 mg tablet ONE TABLET BY MOUTH NOW MAY REPEAT IN ONE WEEK NEEDED completed fluconazole 150 MG Oral Tablet ANGELITA ([facility]) NITROFURANTOIN, MACROCRYSTALS 25 MG / Ni trofurantoin, Monohydrate 75 MG Oral Capsule nitrofurantoin monohydrate/macrocrystals 100 mg capsule TAKE ONE CAPSULE BY MOUTH TWICE A DAY FOR 7 DAYS nitrofurantoin monohydrate/macrocrystals 100 mg capsule TAKE ONE CAPSULE BY MOUTH TWICE A DAY FOR 7 DAYS completed nitrofurantoin, macrocrystal s 25 MG / nitrofurantoin, monohydrate 75 MG Oral Capsule ANGELITA ([facility]) Sulfamethoxazole 800 MG / Trimethoprim 1 60 MG Oral Tablet sulfamethoxazole 800 mg-trimethoprim 160 mg tablet TAKE ONE TABLET BY MOUTH TWICE A DAY FOR 5 DAYS sulfamethoxazole 800 mg-trimethoprim 160 mg tablet TAKE ONE TABLET BY MOUTH TWICE A DAY FOR 5 DAYS completed sulfamethoxazole 800 MG / trimethoprim 160 MG Oral Tablet ANGELITA ([facility]) cetrorelix 0.25 MG/ML Injectable Solutio n [Cetrotide] Cetrotide 0.25 mg subcutaneous kit Cetrotide 0.25 mg subcutaneous kit completed cetrorelix 0.25 MG Injection [Cetrotide] ANGELITA ([facility]) 200 ACTUAT Albuterol 0.09 MG/ACTUAT Mete red Dose Inhaler [Ventolin] Ventolin HFA 90 mcg/actuation aerosol inhaler INHALE TWO PUFFS BY MOUTH EVERY 4 TO 6 HOURS NEEDED FOR WHEEZING Ventolin HFA 90 mcg/actuation aerosol in haler INHALE TWO PUFFS BY MOUTH EVERY 4 TO 6 HOURS NEEDED FOR WHEEZING completed [id number] 200 ACTUAT albuter ol 0.09 MG/ACTUAT Metered Dose Inhaler [Ventolin] ANGELITA ([facility]) Fluconazole 150 MG Oral Tablet fluconazo le 150 mg tablet ONE TABLET BY MOUTH NOW MAY REPEAT IN ONE WEEK NEEDED fluconazole 150 mg tablet ONE TABLET BY MOUTH NOW MAY REPEAT IN ONE WEEK NEEDED completed fluconazole 150 MG Oral Tablet ANGELITA ([facility]) 200 ACTUAT Albuterol 0.09 MG/ACTUAT Mete red Dose Inhaler [Ventolin] Ventolin HFA 90 mcg/actuation aerosol inhaler INHALE TWO PUFFS BY MOUTH EVERY 4 TO 6 HOURS NEEDED FOR WHEEZING Ventolin HFA 90 mcg/actuation aerosol in haler INHALE TWO PUFFS BY MOUTH EVERY 4 TO 6 HOURS NEEDED FOR WHEEZING completed [id number] 200 ACTUAT albuter ol 0.09 MG/ACTUAT Metered Dose Inhaler [Ventolin] ANGELITA ([facility]) Cephalexin 500 MG Oral Capsule cephalexi n 500 mg capsule TAKE ONE CAPSULE BY MOUTH EVERY 12 HOURS FOR 7 DAYS cephalexin 500 mg capsule TAKE ONE CAPSU LE BY MOUTH EVERY 12 HOURS FOR 7 DAYS comple sandhya cephalexin 500 MG Oral Capsule ANGELITA ([facility]) cetrorelix 0.25 MG/ML Injectable Solutio n [Cetrotide] Cetrotide 0.25 mg subcutaneous kit Cetrotide 0.25 mg subcutaneous kit completed cetrorelix 0.25 MG Injection [Cetrotide] [facility] ([facility]) Sulfamethoxazole 800 MG / Trimethoprim 1 60 MG Oral Tablet sulfamethoxazole 800 mg-trimethoprim 160 mg tablet TAKE ONE TABLET BY MOUTH TWICE A DAY FOR 5 DAYS sulfamethoxazole 800 mg-trimethoprim 160 mg tablet TAKE ONE TABLET BY MOUTH TWICE A DAY FOR 5 DAYS completed sulfamethoxazole 800 MG / trimethoprim 160 MG Oral Tablet [facility] ([facility]) Cephalexin 500 MG Oral Capsule cephalexi n 500 mg capsule TAKE ONE CAPSULE BY MOUTH EVERY 12 HOURS FOR 7 DAYS cephalexin 500 mg capsule TAKE ONE CAPSU LE BY MOUTH EVERY 12 HOURS FOR 7 DAYS comple sandhya cephalexin 500 MG Oral Capsule [facility] ([facility]) Leuprolide Acetate 5 MG/ML Injectable So lution leuprolide 1 mg/0.2 mL subcutaneous kit leuprolide 1 mg/0.2 mL subcutaneous kit completed leuprolide acetate 5 MG/ML Injectable So lution [facility] ([facility]) Ondansetron 4 MG Oral Tablet ondansetron HCl 4 mg tablet TAKE ONE TABLET BY MOUTH EVERY 8 HOURS FOR NAUSEA ondansetron HCl 4 mg tablet TAKE ONE TAB LET BY MOUTH EVERY 8 HOURS FOR NAUSEA complet ed ondansetron 4 MG Oral Tablet ANGELITA ([facility]) Ciprofloxacin 500 MG Oral Tablet ciprofl oxacin 500 mg tablet TAKE 1 TABLET BY MOUTH TWICE A DAY FOR 5 DAYS ciprofloxacin 500 mg tablet TAKE 1 TABLE T BY MOUTH TWICE A DAY FOR 5 DAYS completed ciprofloxacin 500 MG Oral Tablet ANGELITA ([facility]) immunization admin fee ADMINISTRATION FEE completed immunization admin fee ANGELITA ([facility]) 1.5 ML Follitropin Enoch 600 UNT/ML Pen I njector [Gonal F] Gonal-F RFF Redi-Ject 900 unit/1.5 mL subcutaneous pen injector Gonal-F RFF Redi-Ject 900 unit/1.5 mL subcutaneous pen injector completed 1.5 ML follitropin enoch 600 UNT/ML Pen Injector [Gonal F] ANGELITA ([facility]) Fluconazole 150 MG Oral Tablet fluconazo le 150 mg tablet ONE TABLET BY MOUTH NOW MAY REPEAT IN ONE WEEK NEEDED fluconazole 150 mg tablet ONE TABLET BY MOUTH NOW MAY REPEAT IN ONE WEEK NEEDED completed fluconazole 150 MG Oral Tablet [facility] ([facility]) Sulfamethoxazole 800 MG / Trimethoprim 1 60 MG Oral Tablet sulfamethoxazole 800 mg-trimethoprim 160 mg tablet TAKE ONE TABLET BY MOUTH TWICE A DAY FOR 5 DAYS sulfamethoxazole 800 mg-trimethoprim 160 mg tablet TAKE ONE TABLET BY MOUTH TWICE A DAY FOR 5 DAYS completed sulfamethoxazole 800 MG / trimethoprim 160 MG Oral Tablet ANGELITA ([facility]) 1.5 ML Follitropin Enoch 600 UNT/ML Pen I njector [Gonal F] Gonal-F RFF Redi-Ject 900 unit/1.5 mL subcutaneous pen injector Gonal-F RFF Redi-Ject 900 unit/1.5 mL subcutaneous pen injector completed 1.5 ML follitropin enoch 600 UNT/ML Pen Injector [Gonal F] ANGELITA ([facility]) Cephalexin 500 MG Oral Capsule cephalexi n 500 mg capsule TAKE ONE CAPSULE BY MOUTH EVERY 12 HOURS FOR 7 DAYS cephalexin 500 mg capsule TAKE ONE CAPSU LE BY MOUTH EVERY 12 HOURS FOR 7 DAYS comple sandhya cephalexin 500 MG Oral Capsule ANGELITA ([facility]) NITROFURANTOIN, MACROCRYSTALS 100 MG Ora l Capsule nitrofurantoin macrocrystal 100 mg capsule TAKE ONE CAPSULE BY MOUTH EVERY DAY NEEDED nitrofurantoin macrocrystal 100 mg capsule TAKE ONE CAPSULE BY MOUTH EVERY DAY NEEDED completed nitrofurantoin, macr ocrystals 100 MG Oral Capsule ANGELITA ([facility]) Chorionic Gonadotropin 25334 UNT/ML Inje ctable Solution chorionic gonadotropin, human 10,000 unit intramuscular solution chorionic gonadotropin, human 10,000 unit intramuscular solution completed chorionic gonadotropin 67157 UNT/ML Injectable Solution ANGELITA ([facility]) Chorionic Gonadotropin 13015 UNT/ML Inje ctable Solution chorionic gonadotropin, human 10,000 unit intramuscular solution chorionic gonadotropin, human 10,000 unit intramuscular solution completed chorionic gonadotropin 34424 UNT/ML Injectable Solution ANGELITA ([facility]) Ciprofloxacin 500 MG Oral Tablet ciprofl oxacin 500 mg tablet TAKE 1 TABLET BY MOUTH TWICE A DAY FOR 5 DAYS ciprofloxacin 500 mg tablet TAKE 1 TABLE T BY MOUTH TWICE A DAY FOR 5 DAYS completed ciprofloxacin 500 MG Oral Tablet ANGELITA ([facility]) Ondansetron 4 MG Oral Tablet ondansetron HCl 4 mg tablet TAKE ONE TABLET BY MOUTH EVERY 8 HOURS FOR NAUSEA ondansetron HCl 4 mg tablet TAKE ONE TAB LET BY MOUTH EVERY 8 HOURS FOR NAUSEA complet ed ondansetron 4 MG Oral Tablet DUE WEST ([facility]) Ciprofloxacin 500 MG Oral Tablet ciprofl oxacin 500 mg tablet TAKE 1 TABLET BY MOUTH TWICE A DAY FOR 5 DAYS ciprofloxacin 500 mg tablet TAKE 1 TABLE T BY MOUTH TWICE A DAY FOR 5 DAYS completed ciprofloxacin 500 MG Oral Tablet ANGELITA ([facility]) NITROFURANTOIN, MACROCRYSTALS 100 MG Ora l Capsule nitrofurantoin macrocrystal 100 mg capsule TAKE ONE CAPSULE BY MOUTH EVERY DAY NEEDED nitrofurantoin macrocrystal 100 mg capsule TAKE ONE CAPSULE BY MOUTH EVERY DAY NEEDED completed nitrofurantoin, macr ocrystals 100 MG Oral Capsule ANGELITA ([facility]) NITROFURANTOIN, MACROCRYSTALS 25 MG / Ni trofurantoin, Monohydrate 75 MG Oral Capsule nitrofurantoin monohydrate/macrocrystals 100 mg capsule TAKE ONE CAPSULE BY MOUTH TWICE A DAY FOR 7 DAYS nitrofurantoin monohydrate/macrocrystals 100 mg capsule TAKE ONE CAPSULE BY MOUTH TWICE A DAY FOR 7 DAYS completed nitrofurantoin, macrocrystal s 25 MG / nitrofurantoin, monohydrate 75 MG Oral Capsule ANGELITA ([facility]) Ondansetron 4 MG Oral Tablet ondansetron HCl 4 mg tablet TAKE ONE TABLET BY MOUTH EVERY 8 HOURS FOR NAUSEA ondansetron HCl 4 mg tablet TAKE ONE TAB LET BY MOUTH EVERY 8 HOURS FOR NAUSEA complet ed ondansetron 4 MG Oral Tablet ANGELITA ([facility]) NITROFURANTOIN, MACROCRYSTALS 25 MG / Ni trofurantoin, Monohydrate 75 MG Oral Capsule nitrofurantoin monohydrate/macrocrystals 100 mg capsule TAKE ONE CAPSULE BY MOUTH TWICE A DAY FOR 7 DAYS nitrofurantoin monohydrate/macrocrystals 100 mg capsule TAKE ONE CAPSULE BY MOUTH TWICE A DAY FOR 7 DAYS completed nitrofurantoin, macrocrystal s 25 MG / nitrofurantoin, monohydrate 75 MG Oral Capsule ANGELITA ([facility]) Insurance Providers Payer name Policy type / Coverage type Policy ID Covered constitution party ID Covered constitution party's relationship to sinclair Policy Sinclair Plan Information [facility] [id number] SP [id number] [facility] [id number] SP [id number] [facility] [id number] SP [id number] [facility] [id number] S [id number] ANSI-Commercial [id number] ANSI-Commercial [id number] ANSI-Commercial [id number] ANSI-Commercial [id number] [facility] [id number] S [id number] [facility] [place] [place] Health Maintenance Organization (O) [id number] Self [id number] [facility] [id number] Self [id number] [employer] [id number] Self [id number] [employer] [id number] Self [facility] [id number] [facility] [id number] [facility] [id number] SP [id number] Problems, Conditions, and Diagnoses Code Display Name Description Problem Type Effective Dates Data Source(s) 38522032 Adjustment disorder with mixed emotional features Adjustment Disorder with Mixed Emotional Features Problem 02/20/2021 12:00:00 AM EDT ATH GUERO ([facility]) [id number] Migraine Migraine Problem 07/28/2020 12:00:00 AM ED T ANGELITA ([facility]) [id number] Migraine Migraine Problem 07/28/2020 12:00:00 AM ED T ANGELITA ([facility]) [id number] Migraine Migraine Problem 07/28/2020 12:00:00 AM ED T ANGELITA ([facility]) [id number] Migraine Migraine Problem 07/28/2020 12:00:00 AM ED T ANGELITA ([facility]) [id number] Meibomian gland dysfunction Meibomian Gland Dysfunctio n Problem 02/03/2020 12:00:00 AM EDT ANGELITA ([facility]) [id number] Evaluation procedure Evaluation Procedure Problem 12/10/2019 12:00:00 AM EDT - 02/02/2021 12:00:00 AM EDT ANGELITA ([facility]) [id number] SNOMED CT Concept SNOMED CT Concept Problem 12/09 12:00:00 AM EDT - 02/02/2021 12:00:00 AM EDT ANGELITA ([facility]) Surgeries/Procedures Procedure Description Date Indications Data Source(s) Excision of Uterine Polyp 08/22/2020 12:00:00 AM EDT ANGELITA ([facility]) CYSTOURETHROSCOPY 03/10/2020 12:00:00 AM EST MEDENT ([facility]) CT ABDOMEN & PELVIS W/O CONTRST 1/> BODY REGIONS 03/10 12:00:00 AM EST MEDENT ([facility]) Results ID Date Data Source [id number] 03/03/2021 09:40:00 AM EDT [facility] Name Value Range Interpretation Code Description Data Genny rce(s) Supporting Document(s) SARS-CoV-2 (COVID-19) RNA [Presence] in Respiratory specimen by SALLY with probe detection Not Detected [facility] This lab was ordered by [facility] and reported by [employer] ID Date Data Source [id number] 2021 05:22:00 PM EDT [facility] Name Value Range Interpretation Code Description Data Genny rce(s) Supporting Document(s) SARS coronavirus 2 RdRp gene Covid_negative [facility] This lab was ordered by [facility] and reported by [employer]. ID Date Data Source [id number] 01/07/2021 12:00:00 AM EDT [facility] Name Value Range Interpretation Code Description Data Genny rce(s) Supporting Document(s) SARS-CoV2 Rapid Antigen Negative [facility] This lab was reported by [facility]. ID Date Data Source [id number] 09/07/2020 05:48:00 PM EDT [facility] Name Value Range Interpretation Code Description Data Genny rce(s) Supporting Document(s) SARS coronavirus 2 Ag Covid_negative [facility] This lab was ordered by MALENA mcclain nd reported by [employer]. ID Date Data Source [id number] 08/29/2020 12:46:00 PM EDT [facility] Name Value Range Interpretation Code Description Data Genny rce(s) Supporting Document(s) SARS coronavirus 2 Ag Covid_negative [facility] This lab was ordered by MALENA mcclain nd reported by [employer]. ID Date Data Source [id number] 08/23/2020 12:25:00 PM EDT [facility]) Name Value Range Interpretation Code Description Data Genny rce(s) Supporting Document(s) blood type O positive Blood Type [facility]) Ab screen (indirect vivi)vis negative Ab Sc reen (Indirect Vivi)vis ANGELITA ([facility]) ID Date Data Source [id number] 08/23/2020 12:25:00 PM EDT ANGELITA ([facility]) Name Value Range Interpretation Code Description Data Genny rce(s) Supporting Document(s) red blood count 4.15 10 4.00-5.40 Red Blood Count ATHE NA ([facility]) hematocrit 38.8 % 36.0-47.0 Hematocrit ANGELITA ([facility]) white blood count 3.9 10 4.0-10.0 Below low normal White Blood Count ANGELITA ([facility]) hemoglobin 13.0 g/dL 12.0-15.5 Hemoglobin ANGELITA ([facility]) red cell distribution width 11.9 % 11.5-14.5 Red Cell Distribution Width ANGELITA ([facility]) platelet count, automated 274 10 150-450 Platelet C ount, Automated ANGELITA ([facility]) mean corpuscular HGB conc 33.5 g/dL 32.0-36.5 Mean Corpu scular HGB Conc ANGELITA ([facility]) mean corpuscular volume 93.5 fL 80.0-96.0 Mean Corpusc ular Volume ANGELITA ([facility]) mean corpuscular hemoglobin 31.3 pg 27.0-33.0 Mean Cor puscular Hemoglobin ANGELITA ([facility]) nucleated red blood cell % 0.0 % 0-0 Nucleated Red Blood Cell % ANGELITA ([facility]) ID Date Data Source [id number] 08/23/2020 12:25:00 PM EDT ANGELITA ([facility]) Name Value Range Interpretation Code Description Data Genny rce(s) Supporting Document(s) blood type O positive Blood Type ANGELITA ([facility]) Ab screen (indirect vivi)vis negative Ab Sc reen (Indirect Vivi)vis [facility] ([facility]) ID Date Data Source [id number] 08/23/2020 12:25:00 PM EDT [facility] ([facility]) Name Value Range Interpretation Code Description Data Genny rce(s) Supporting Document(s) white blood count 3.9 10 4.0-10.0 Below low normal White Blood Count ANGELITA ([facility]) hematocrit 38.8 % 36.0-47.0 Hematocrit ANGELITA ([facility]) red blood count 4.15 10 4.00-5.40 Red Blood Count ATHE ([facility]) hemoglobin 13.0 g/dL 12.0-15.5 Hemoglobin ANGELITA ([facility]) mean corpuscular volume 93.5 fL 80.0-96.0 Mean Corpusc ular Volume ANGELITA ([facility]) mean corpuscular hemoglobin 31.3 pg 27.0-33.0 Mean Cor puscular Hemoglobin ANGELITA ([facility]) red cell distribution width 11.9 % 11.5-14.5 Red Cell Distribution Width ANGELITA ([facility]) platelet count, automated 274 10 150-450 Platelet C ount, Automated ANGELITA ([facility]) nucleated red blood cell % 0.0 % 0-0 Nucleated Red Blood Cell % ANGELITA ([facility]) mean corpuscular HGB conc 33.5 g/dL 32.0-36.5 Mean Corpu scular HGB Conc ANGELITA ([facility]) ID Date Data Source [id number] 08/23/2020 12:25:00 PM EDT [facility] ([facility]) Name Value Range Interpretation Code Description Data Genny rce(s) Supporting Document(s) blood type O positive Blood Type ANGELITA ([facility]) Ab screen (indirect vivi)vis negative Ab Sc reen (Indirect Vivi)vis [facility] ([facility]) ID Date Data Source [id number] 08/23/2020 12:25:00 PM EDT [facility]) Name Value Range Interpretation Code Description Data Genny rce(s) Supporting Document(s) white blood count 3.9 10 4.0-10.0 Below low normal White Blood Count ANGELITA ([facility]) red blood count 4.15 10 4.00-5.40 Red Blood Count ATHE NA ([facility]) hemoglobin 13.0 g/dL 12.0-15.5 Hemoglobin ANGELITA ([facility]) hematocrit 38.8 % 36.0-47.0 Hematocrit ANGELITA ([facility]) mean corpuscular volume 93.5 fL 80.0-96.0 Mean Corpusc ular Volume ANGELITA ([facility]) mean corpuscular HGB conc 33.5 g/dL 32.0-36.5 Mean Corpu scular HGB Conc ANGELITA ([facility]) mean corpuscular hemoglobin 31.3 pg 27.0-33.0 Mean Cor puscular Hemoglobin ANGELITA ([facility]) platelet count, automated 274 10 150-450 Platelet C ount, Automated ANGELITA ([facility]) red cell distribution width 11.9 % 11.5-14.5 Red Cell Distribution Width ANGELITA ([facility]) nucleated red blood cell % 0.0 % 0-0 Nucleated Red Blood Cell % ANGELITA ([facility]) ID Date Data Source [id number] 08/22/2020 01:38:00 PM EDT [facility] Name Value Range Interpretation Code Description Data Genny rce(s) Supporting Document(s) SARS coronavirus 2 Ag Covid_negative [facility] This lab was ordered by MALENA mcclain nd reported by [employer]. ID Date Data Source [id number] 08/18/2020 02:00:00 PM EDT [facility] Name Value Range Interpretation Code Description Data Genny rce(s) Supporting Document(s) SARS-CoV-2 (COVID-19) RNA [Presence] in Respiratory specimen by SALLY with probe detection Not Detected [facility] This lab was ordered by [facility] and reported by [employer]. ID Date Data Source [id number] 08/03/2020 05:46:00 PM EDT [facility] Name Value Range Interpretation Code Description Data Genny rce(s) Supporting Document(s) SARS coronavirus 2 Ag Covid_negative [facility] This lab was ordered by MALENA mcclain nd reported by [employer]. ID Date Data Source [id number] 07/27/2020 12:00:00 AM EDT [facility] Name Value Range Interpretation Code Description Data Genny rce(s) Supporting Document(s) SARS coronavirus 2 Ag Covid_negative [facility] This lab was ordered by MALENA mcclain nd reported by [employer]. ID Date Data Source [id number] 07/19/2020 01:40:00 PM EDT Sema4 ([facility]) Name Value Range Interpretation Code Description Data Genny rce(s) Supporting Document(s) Expanded Carrier Screen (283) Lab Report: [id number] Abnormal (applies to non-numeric re sults) Sema4 ([facility]) EKDJHh2vDhLLHiXoCWNuPauXQxx2X3W0kKFrI8ZaF5LiKJMjJH88ABMdJLJMI2KsjwCaulQxPKAyFPQD V29iFBfuXd81UMbgJOPbShFpZGh4Hj2nMfSfw3XeS4QnLXkuMn8aoUc8K6ISPTDYZKV8ZCRuYs7IPNTD YeJwYPTrEHGDG2BHOROZWdMwSJOjQODkDyGIPJPZXF [file] HGtccsNuaMZpXM7FGyPsIH8wod2Ci4UslhR9dtVqOHu0GeD9Yu7VARMRC4UIIo== Patient: Marisela Marc of : pecimen: BloodDate collected: 06/30/2020 Order #: [id number] received: 07/01/2020 Lab ID: [id number] diagnosis: Encounter of female for testing for genetic diseasecarrier status for procreative management (Z31.430)Report Date: 07/19/2020 01:40 PMTest: Expanded Carrier Screen (283)Method: NACarrier of Nephrotic Syndrome (NPHS2-Related) / Steroid-ResistantNephrotic SyndromeAssociated gene(s): UKMN1Mnvbwzxg detected: 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, 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, Pathogenic, Heterozygous (onecopy)Negative for all other genes testedRecommendations* Testing the partner for the above positive disorder(s) and geneticcounseling are recommended.* Please note that for female carriers of X-linked diseases,follow-up testing of a male partner is not indicated.* CGG repeat analysis of FMR1 for fragile X syndrome is notperformed on males as repeat expansion of premutation alleles isnot expected in the male germline.* Individuals of , , and Mediterranean ancestryshould also be screened for hemoglobinopathies by CBC andhemoglobin electrophoresis.* Consideration of residual risk by ethnicity after a negativecarrier screen is recommended for the other diseases on the panel,especially in the case of a positive family history for a specificdisorder. Please note that residual risks for X-linked diseases(including full repeat expansions for Fragile X syndrome) may notbe accurate for males and the actual residual risk is likely to belower.Final report signed by Elana Daugherty, Ph.D.[facility]Referred by: Britany Nuñez M.D.SEE ATTACHMENT ID Date Data Source [id number] 07/26/2020 05:42:00 AM EDT Remy ([facility]) Name Value Range Interpretation Code Description Data Genny rce(s) Supporting Document(s) Telephone Genetic Counseling Summary --- Lab Report: [id number] Abnormal (applies to non-numeric results) Remy ([facility]) [id number]9dKHgX4FaG5TrIOZuIO68STNpEYKWN8TbdzOgcvFmKDXzONXG L68bXRapSq87BLzwFPVlKaTsWNl4Lb0dZyDot7BkG5KyYRbaLa2fnDg5V2WEPEVRQEI6XURhVu1YIDMB CbJxEIQbDCRLO7JBKCMAUbEuUBVjKALwNnWKHLZQJO [file] HOasjkNkaJQlCM2FNyLySK4koi5Fp0VcskF9epIoOHs2BoC4Sn6AJWJPQ0QXHl== GC Positive Singles Note - AbnormalPleas e see the telephone Genetic Counseling Summary in the attached PDF.SEE ATTACHMENT ID Date Data Source [id number] 03/10/2020 12:37:00 PM EST MEDENT ([facility]) Name Value Range Interpretation Code Description Data Genny rce(s) Supporting Document(s) Glucose [Presence] in Urine Laboratory test result MEDENT ([facility]) Protein [Presence] in Urine by Test strip Laboratory test result MEDENT ([facility]) Ua Nitrite Laboratory test result ME DENT ([facility]) Ua Leuko Laboratory test result ME DENT ([facility]) Color of Urine Laboratory test result MEDENT ([facility]) Blood [Presence] in Urine by Visual Laboratory test result MEDENT ([facility]) Ketones [Presence] in Urine by Test strip Laboratory test result MEDENT ([facility]) Clarity of Urine Laboratory test result MEDENT ([facility]) Ua Specific [place] 1.015 1.003-1.030 MEDE NT ([facility]) pH of Urine by Test strip 8.0 5.0-7.5 MEDENT ([facility]) Bilirubin.total [Presence] in Urine by Test strip Laboratory test res ult MEDENT ([facility]) Urobilinogen [Mass/volume] in Urine by Test strip 0.2 E.U./dL 0.0-1.0 MEDENT ([facility]) ID Date Data Source [id number] 02/11/2020 03:55:00 PM EDT MEDENT ([facility]) Name Value Range Interpretation Code Description Data Genny rce(s) Supporting Document(s) Bacteria identified in Urine by Culture Laboratory test result MEDENT ([facility]) SPECIMEN DESCRIPTION MIDSTREAM UR INE,CLEAN CATCH CULTURE RESULTS NO GROWTH REPORT STATUS FINAL 02/12/2020 ID Date Data Source [id number] 02/12/2020 03:24:41 PM EDT [facility] - CORE SPECIMEN DESCRIPTION MIDSTREAM UR INE,CLEAN CATCHCULTURE RESULTS NO GROWTHREPORT STATUS FINAL 02/12/2020 Name Value Range Interpretation Code Description Data Genny rce(s) Supporting Document(s) ID Date Data Source [id number] 02/11/2020 01:39:00 PM EDT [facility] ([facility]) Name Value Range Interpretation Code Description Data Genny rce(s) Supporting Document(s) Glucose [Presence] in Urine Laboratory test result [facility]ENT ([facility]) Protein [Presence] in Urine by Test strip Laboratory test result MEDENT ([facility]) Ua Leuko Laboratory test result ME DENT ([facility]) Blood [Presence] in Urine by Visual Laboratory test result MEDENT ([facility]) Ua Nitrite Laboratory test result ME DENT ([facility]) Clarity of Urine Laboratory test result MEDENT ([facility]) Color of Urine Laboratory test result MEDENT ([facility]) Ketones [Presence] in Urine by Test strip Laboratory test result MEDENT ([facility]) Bilirubin.total [Presence] in Urine by Test strip Laboratory test res ult MEDENT ([facility]) pH of Urine by Test strip 5.0 5.0-7.5 MEDENT ([facility]) Ua Specific [place] 1.025 1.003-1.030 MEDE NT ([facility]) Urobilinogen [Mass/volume] in Urine by Test strip 0.2 E.U./dL 0.0-1.0 MEDENT ([facility]) ID Date Data Source [id number] 01/21/2020 02:05:00 PM EDT MEDENT ([facility]) Name Value Range Interpretation Code Description Data Genny rce(s) Supporting Document(s) Bacteria identified in Urine by Culture Laboratory test result MEDENT ([facility]) treated with Macrobid on dos Procedure Social History Code Duration Value Status Description Data Source(s ) Smoking 03/10/2020 12:00:00 AM EST Former Cigarette Smoker com pleted Former Cigarette Smoker [facility] ([facility]) Vital Signs ID Date Data Source [id number] Name Value Range Interpretation Code Description Data Source(s) Diastolic blood pressure 72 mm[Hg] 72 mm[Hg] [facility]UE [facility] ([facility]) Body height 65 [in_i] 65 [in_i] [facility] ([facility]) Body mass index (BMI) [Ratio] 24.5 kg/m2 24.5 k g/m2 [facility] ([facility]) Systolic blood pressure 136 mm[Hg] 136 mm[Hg] A THENA ([facility]) Body weight 2358.4 [oz_av] 2358.4 [oz_av] ATHEN A ([facility]) Diastolic blood pressure 71 mm[Hg] 71 mm[Hg] ANGELITA ([facility]) Body height 65 [in_i] 65 [in_i] ANGELITA ([facility]) Body mass index (BMI) [Ratio] 24.6 kg/m2 24.6 k g/m2 ANGELITA ([facility]) Systolic blood pressure 114 mm[Hg] 114 mm[Hg] A KARRIEA ([facility]) Body weight 2368 [oz_av] 2368 [oz_av] ANGELITA ([facility]) Diastolic blood pressure 71 mm[Hg] 71 mm[Hg] ANGELITA ([facility]) Body height 65 [in_i] 65 [in_i] ANGELITA ([facility]) Body mass index (BMI) [Ratio] 24.6 kg/m2 24.6 k g/m2 ANGELITA ([facility]) Systolic blood pressure 114 mm[Hg] 114 mm[Hg] A KARRIEA ([facility]) Body weight 2368 [oz_av] 2368 [oz_av] ANGELITA ([facility]) Diastolic blood pressure 74 mm[Hg] 74 mm[Hg] ANGELITA ([facility]) Body height 65 [in_i] 65 [in_i] ANGELITA ([facility]) Body mass index (BMI) [Ratio] 25.1 kg/m2 25.1 k g/m2 ANGELITA ([facility]) Systolic blood pressure 117 mm[Hg] 117 mm[Hg] A THENA ([facility]) Body weight 2416 [oz_av] 2416 [oz_av] ANGELITA ([facility]) Diastolic blood pressure 74 mm[Hg] 74 mm[Hg] ANGELITA ([facility]) Body height 65 [in_i] 65 [in_i] ANGELITA ([facility]) Body mass index (BMI) [Ratio] 25.1 kg/m2 25.1 k g/m2 ANGELITA ([facility]) Systolic blood pressure 117 mm[Hg] 117 mm[Hg] A THENA ([facility]) Body weight 2416 [oz_av] 2416 [oz_av] ANGELITA ([facility]) Diastolic blood pressure 74 mm[Hg] 74 mm[Hg] ANGELITA ([facility]) Body height 65 [in_i] 65 [in_i] ANGELITA ([facility]) Body mass index (BMI) [Ratio] 25.1 kg/m2 25.1 k g/m2 ANGELITA ([facility]) Systolic blood pressure 117 mm[Hg] 117 mm[Hg] A THENA ([facility]) Body weight 2416 [oz_av] 2416 [oz_av] ANGELITA ([facility]) Body weight 149 [lb_av] 149 [lb_av] eCW1 ([facility], [facility]) Body height 65 [in_i] 65 [in_i] eCW1 ([facility]) Body mass index (BMI) [Ratio] 24.79 kg/m2 24.79 kg/m2 eCW1 ([facility]) Systolic blood pressure 110 mm[Hg] 110 mm[Hg] e CW1 ([facility]) Diastolic blood pressure 72 mm[Hg] 72 mm[Hg] eCW1 ([facility]) Body height 65 [in_i] 65 [in_i] MEDENT ([facility] 5'5" Body weight 148.00 [lb_av] 148.00 [lb_av] MEDEN T ([facility]) Body weight 67.133 kg 67.133 kg MEDENT ([facility] Body mass index (BMI) [Ratio] 24.6 kg/m2 24.6 k g/m2 MEDENT ([facility]) Heart rate 83 /min 83 /min MEDENT ([facility] Systolic blood pressure 146 mm[Hg] 146 mm[Hg] M EDENT ([facility]) Diastolic blood pressure 80 mm[Hg] 80 mm[Hg] MEDENT ([facility]) Body temperature 97.4 [degF] 97.4 [degF] MEDENT ([facility]) Body height 65 [in_i] 65 [in_i] MEDENT ([facility] 5'5" Body weight 145.00 [lb_av] 145.00 [lb_av] MEDEN T ([facility]) Body weight 65.772 kg 65.772 kg MEDENT ([facility] Body mass index (BMI) [Ratio] 24.1 kg/m2 24.1 k g/m2 MEDENT ([facility]) Systolic blood pressure 121 mm[Hg] 121 mm[Hg] M EDENT ([facility]) Diastolic blood pressure 78 mm[Hg] 78 mm[Hg] MEDENT ([facility]) Heart rate 80 /min 80 /min MEDENT ([facility] Systolic blood pressure 128 mm[Hg] 128 mm[Hg] M EDENT ([facility], [facility]) Diastolic blood pressure 80 mm[Hg] 80 mm[Hg] MEDENT ([facility], [facility]) Body weight 149.00 [lb_av] 149.00 [lb_av] MEDEN T ([facility], [facility]) Body height 65 [in_i] 65 [in_i] MEDENT ([facility], [facility]) 5'5" Heart rate 78 /min 78 /min MEDENT ([facility], [facility]) Respiratory rate 18 /min 18 /min MEDENT ( [facility], [facility]) Oxygen saturation in Arterial blood by Pulse oximetry 98 % 98 % MEDENT ([facility], [facility]) Body temperature 98.2 [degF] 98.2 [degF] MEDENT ([facility], [facility]) Body mass index (BMI) [Ratio] 24.8 kg/m2 24.8 k g/m2 MEDENT ([facility], [facility]) Patient Treatment Plan of Care Planned Activity Planned Date Details Description Data Source (s) Isibloom 0.15 mg-0.03 mg tablet 11/22/2020 12:00:00 AM EDT DUE [place]ST ([facility]) Isibloom 0.15 mg-0.03 mg tablet 11/22/2020 12:00:00 AM EDT ANGELITA ([facility]) 200 ACTUAT Albuterol 0.09 MG/ACTUAT Metered Dose Inhaler [Ventolin] ANGELITA ([facility]) Sulfamethoxazole 800 MG / Trimethoprim 160 MG Oral Tablet ANGELITA ([facility]) Ondansetron 4 MG Oral Tablet ANGELITA ([facility]) NITROFURANTOIN, MACROCRYSTALS 25 MG / Ni trofurantoin, Monohydrate 75 MG Oral Capsule ANGELITA ([facility]) NITROFURANTOIN, MACROCRYSTALS 100 MG Oral Capsule ANGELITA ([facility]) immunization admin fee ADMINISTRATION FEE ANGELITA ([facility]) Fluconazole 150 MG Oral Tablet ANGELITA ([facility]) Ciprofloxacin 500 MG Oral Tablet ANGELITA ([facility]) Cephalexin 500 MG Oral Capsule ANGELITA ([facility]) 200 ACTUAT Albuterol 0.09 MG/ACTUAT Metered Dose Inhaler [Ventolin] ANGELITA ([facility]) Sulfamethoxazole 800 MG / Trimethoprim 160 MG Oral Tablet ANGELITA ([facility]) Ondansetron 4 MG Oral Tablet ANGELITA ([facility]) NITROFURANTOIN, MACROCRYSTALS 25 MG / Ni trofurantoin, Monohydrate 75 MG Oral Capsule ANGELITA ([facility]) NITROFURANTOIN, MACROCRYSTALS 100 MG Oral Capsule ANGELITA ([facility]) Follicle Stimulating Hormone 75 UNT/ML / Luteinizing Hormone 75 UNT/ML Injectable Solution [Menopur] AT ANA ([facility]) Leuprolide Acetate 5 MG/ML Injectable Solution ANGELITA ([facility]) immunization admin fee ADMINISTRATION FEE ANGELITA ([facility]) 1.5 ML Follitropin Enoch 600 UNT/ML Pen Injector [Gonal F] [facility]) Fluconazole 150 MG Oral Tablet ANGELITA ([facility]) Ciprofloxacin 500 MG Oral Tablet ANGELITA ([facility]) Chorionic Gonadotropin 99398 UNT/ML Injectable Solution ANGELITA ([facility]) cetrorelix 0.25 MG/ML Injectable Solution [Cetrotide] ANGELITA ([facility]) Cephalexin 500 MG Oral Capsule ANGELITA ([facility]) 200 ACTUAT Albuterol 0.09 MG/ACTUAT Metered Dose Inhaler [Ventolin] [facility]) Sulfamethoxazole 800 MG / Trimethoprim 160 MG Oral Tablet ANGELITA ([facility]) Ondansetron 4 MG Oral Tablet ANGELITA ([facility]) NITROFURANTOIN, MACROCRYSTALS 25 MG / Ni trofurantoin, Monohydrate 75 MG Oral Capsule ANGELITA ([facility]) NITROFURANTOIN, MACROCRYSTALS 100 MG Oral Capsule ANGELITA ([facility]) Follicle Stimulating Hormone 75 UNT/ML / Luteinizing Hormone 75 UNT/ML Injectable Solution [Menopur] AT [facility]) Leuprolide Acetate 5 MG/ML Injectable Solution DUE [place] ([facility]) immunization admin fee ADMINISTRATION FEE [facility]) 1.5 ML Follitropin Enoch 600 UNT/ML Pen Injector [Gonal F] [facility]) Fluconazole 150 MG Oral Tablet [facility]) Ciprofloxacin 500 MG Oral Tablet [facility]) Chorionic Gonadotropin 10808 UNT/ML Injectable Solution [facility]) cetrorelix 0.25 MG/ML Injectable Solution [Cetrotide] [facility]) Cephalexin 500 MG Oral Capsule ANGELITA ([facility])
[2021-03-07 11:03] LABS: HEMATOCRIT 38.7 % (36.0-47.0); HEMOGLOBIN 12.9 g/dl (12.0-15.5); MEAN CORPUSCULAR HEMOGLOBIN 30.6 pg (27.0-33.0); MEAN CORPUSCULAR HGB CONC 33.3 g/dl (32.0-36.5); MEAN CORPUSCULAR VOLUME 91.7 fl (80.0-96.0); PLATELET COUNT, AUTOMATED 280 10^3/uL (150-450); RED BLOOD COUNT 4.22 10^6/uL (4.00-5.40); WHITE BLOOD COUNT 4.3 10^3/uL (4.0-10.0)
[2021-03-07] MEDS ORDERED: fentaNYL 100 MCG/2 ML INJECTION (J3010) As Ordered ONE (13:48)
[2021-03-07] MEDS ORDERED: dexameTHASONE 4 MG/ML 1ML VIAL (J1100 PER 1MG) As Ordered ONE (13:48)
[2021-03-07] MEDS ORDERED: KETOROLAC 60MG 2ML VIAL As Ordered ONE (13:48)
[2021-03-07] MEDS ORDERED: ONDANSETRON 4MG/2ML VIAL As Ordered ONE (13:48)
[2021-03-07] MEDS ORDERED: propofoL 200 MG/20 ML VIAL As Ordered ONE (13:48)
[2021-03-07] MEDS ORDERED: MIDAZOLAM INJ 2MG/2ML VIAL (J2250 PER 1MG) As Ordered ONE (13:48)
[2021-03-07] MEDS ORDERED: LIDOCAINE 2% INJ 100 MG/5 ML SYRINGE As Ordered ONE (13:48)
[2021-03-07] MEDS ORDERED: LIDOCAINE 2% 100MG/5ML SDV (FOR ANES.) As Ordered ONE (13:51)
[2021-03-07] MEDS ORDERED: SILVER NITRATE APPLICATOR As Ordered ONE (14:51)
[2021-03-07] MEDS ORDERED: ONDANSETRON 4MG/2ML VIAL IV PRN (15:20)
[2021-03-07] MEDS ORDERED: oxyCODONE 5MG TAB PO PRN (15:20)
[2021-03-07] MEDS ORDERED: fentaNYL 100 MCG/2 ML INJECTION (J3010) IV PRN (15:20)
[2021-03-07] MEDS ORDERED: LR 1,000 ML IV SCH (15:20)
[2021-03-07 16:25] VITALS: BP 130/80
[2021-03-07] MEDS ORDERED: KETOROLAC 30 MG/ML 1ML VIAL IV SCH (20:00)
--- NOTE | 2021-03-12 09:45 | ROOPDOC ---
[facility] Report Of Operation Report of Operation DATE OF PROCEDURE: 03/07/21 REOPERATIVE DIAGNOSES: 1. Endometrial polyp POSTOPERATIVE DIAGNOSES: 1. Thickened endometrium PROCEDURE PERFORMED: Hysteroscopy, myosure, dilation and curettage. SURGEON: Sana Linares MD REPAIR CLERK: None. ANESTHESIA: General via laryngeal mask airway ESTIMATED BLOOD LOSS: 5ml IV FLUIDS: 800 mL of lactated Ringer's solution. URINE OUTPUT: Not obtained. PREOPERATIVE ANTIBIOTICS: None. OPERATIVE FINDINGS: Thickened endometrium. No evidence of polyp. Bilateral ostia was visualized. DESCRIPTION OF PROCEDURE: After informed consent was obtained written consent was reviewed, the patient brought to operating room where she was placed under general anesthesia. She was then placed in lithotomy position and was prepped and draped in normal sterile fashion. Time-out in the operating room was then performed identifying the patient, procedure be performed as well as drug allergies. [place] speculum was placed revealing the cervix. Anterior lip of the cervix grasped with a single-tooth tenaculum. The uterus then sounded to 7.5 cm. The cervix then sequentially dilated using Hanks dilators. Hysteroscope was then advanced through the cervical os and endometrial cavity was observed with the above-noted findings. Myosure was then advanced. Endometrial sampling was performed using the MyoSure device. Myosure device was removed. Hysteroscope was then removed. Sharp curette was then advanced through the cervical os to the level of the fundus and the uterus curetted in a 360 degree fashion. Tissue was obtained and this was sent to pathology for evaluation. The single-tooth tenaculum was then removed. Tenaculum sites were noted be hemostatic. The speculum was then removed. The patient was then taken out of lithotomy position, was awakened from general anesthesia and taken recovery in stable condition. SANA LINARES MD. Mar 12, 2021 09:44
== END 2021-03-07 16:30 | disposition home or self-care (01) ==
LOC: M SDC 10:32
PROVIDERS: ATTEND Obstetrics & Gynecology
DX: N84.0 Polyp of corpus uteri (principal); F43.10 Post-traumatic stress disorder, unspecified; G43.909 Migraine, unspecified, not intractable, without status migrainosus; F41.9 Anxiety disorder, unspecified
CPT/HCPCS: 36415; 58558; 81025; 85027; 86850; 86900; 86901; 88305; J1100; J1885; J2250; J2405; J3010

== ENCOUNTER → 2021-08-31 | Outpatient (CLI) | payer OTHER ==
[~2021-08-31] MED LIST changes: -LIDOCAINE 1% MDV 20ML VIAL SQ PRN; -LR 1,000 ML IV ONE
[2021-08-31 16:12] LABS: HEMATOCRIT 38.8 % (36.0-47.0); HEMOGLOBIN 12.8 g/dl (12.0-15.5); MEAN CORPUSCULAR HEMOGLOBIN 30.3 pg (27.0-33.0); MEAN CORPUSCULAR VOLUME 91.9 fl (80.0-96.0); PLATELET COUNT, AUTOMATED 284 10^3/uL (150-450); RED BLOOD COUNT 4.22 10^6/uL (4.00-5.40); WHITE BLOOD COUNT 5.6 10^3/uL (4.0-10.0)
[2021-08-31 16:51] LABS: FREE T4 0.91 NG/DL (0.76-1.46)
[2021-08-31 16:53] LABS: ESTRADIOL 50.9 PG/ML; LUTEINIZING HORMONE 4.6 mIU/mL; TOTAL 25(OH) VITAMIN D 40.5 NG/ML (30.0-100.0)
[2021-08-31 16:54] LABS: FOLLICLE STIMULATING HORMONE 8.3 mIU/mL
[2021-08-31 17:05] LABS: HEPATITIS B SURFACE ANTIGEN NEGATIVE (NEGATIVE)
[2021-08-31 17:32] LABS: HEPATITIS C VIRUS ABY INDEX 0.1 INDEX (<0.8)
[2021-08-31 17:33] LABS: HIV 1&2 SCREEN CENTAUR NEGATIVE (NEGATIVE)
[2021-08-31 17:39] LABS: GC DNA AMPLIFICATION NEGATIVE (NEGATIVE)
== END ==
LOC: M WUC 14:08
DX: Z31.49 Encounter for other procreative investigation and testing (principal)

== ENCOUNTER → 2022-05-28 | Outpatient (CLI) | payer OTHER ==
[2022-05-28 19:25] LABS: HCG, SERUM QUANTITATIVE 68.6 MIU/ML (<4.2)
[2022-05-28 19:30] LABS: PROGESTERONE 23.11 NG/ML
== END ==
LOC: M LAB 16:32
PROVIDERS: ATTEND Physician Assistant
DX: Z32.01 Encounter for pregnancy test, result positive (principal); N91.2 Amenorrhea, unspecified

== ENCOUNTER → 2022-05-30 | Outpatient (CLI) | payer OTHER ==
[2022-05-30 18:22] LABS: HCG, SERUM QUANTITATIVE 198.6 MIU/ML (<4.2)
[2022-05-30 18:26] LABS: PROGESTERONE 18.83 NG/ML
== END ==
LOC: M LAB 17:08
PROVIDERS: ATTEND Physician Assistant
DX: Z32.01 Encounter for pregnancy test, result positive (principal)

== ENCOUNTER → 2022-06-03 | Outpatient (REF) | payer OTHER ==
[2022-06-03 16:45] LABS: PROGESTERONE 19.27 NG/ML
[2022-06-03 16:56] LABS: HCG, SERUM QUANTITATIVE 1370.2 MIU/ML (<4.2)
== END ==
LOC: M LAB REF 15:53
PROVIDERS: ATTEND Physician Assistant
DX: Z32.01 Encounter for pregnancy test, result positive (principal); N91.2 Amenorrhea, unspecified

== ENCOUNTER → 2022-07-08 | Outpatient (CLI) | payer OTHER ==
[2022-07-08 13:34] LABS: HEMATOCRIT 39.3 % (36.0-47.0); MEAN CORPUSCULAR HEMOGLOBIN 30.7 pg (27.0-33.0); MEAN CORPUSCULAR HGB CONC 33.1 g/dl (32.0-36.5); MEAN CORPUSCULAR VOLUME 92.7 fl (80.0-96.0); PLATELET COUNT, AUTOMATED 296 10^3/uL (150-450); RED BLOOD COUNT 4.24 10^6/uL (4.00-5.40); WHITE BLOOD COUNT 6.5 10^3/uL (4.0-10.0)
[2022-07-08 16:02] LABS: GC DNA AMPLIFICATION NEGATIVE (NEGATIVE)
[2022-07-08 16:51] LABS: HIV 1&2 SCREEN CENTAUR NEGATIVE (NEGATIVE)
[2022-07-08 16:59] LABS: HEPATITIS C VIRUS ABY INDEX < 0.0 INDEX (<0.8)
== END ==
LOC: M PLALAB 09:53
PROVIDERS: ATTEND Obstetrics & Gynecology
DX: O09.529 Supervision of elderly multigravida, unspecified trimester (principal); O09.511 Supervision of elderly primigravida, first trimester; Z3A.00 Weeks of gestation of pregnancy not specified

== ENCOUNTER → 2022-07-18 | Outpatient (CLI) | payer OTHER | LOC: M PLALAB 09:15 | PROVIDERS: ATTEND Obstetrics & Gynecology | DX: O09.511 Supervision of elderly primigravida, first trimester (principal); Z3A.00 Weeks of gestation of pregnancy not specified ==

== ENCOUNTER → 2022-10-23 | Outpatient (CLI) | payer OTHER ==
[2022-10-30 03:07] LABS: TOXOPLASMA IgG ABY <3.0 IU/mL (0.0-7.1)
== END ==
LOC: M PLALAB 13:23
PROVIDERS: ATTEND Advanced Practice Midwife
DX: Z34.82 Encounter for supervision of other normal pregnancy, second trimester (principal)

== ENCOUNTER → 2022-11-01 | Outpatient (CLI) | payer OTHER ==
[~2022-11-01] MED LIST changes: +LOVE0.4I2 SC; +PRENTAB9 PO
[2022-11-01 17:58] LABS: HEMATOCRIT 34.2 % (36.0-47.0); HEMOGLOBIN 11.3 g/dl (12.0-15.5); MEAN CORPUSCULAR HEMOGLOBIN 31.7 pg (27.0-33.0); MEAN CORPUSCULAR VOLUME 95.8 fl (80.0-96.0); PLATELET COUNT, AUTOMATED 217 10^3/uL (150-450); RED BLOOD COUNT 3.57 10^6/uL (4.00-5.40); WHITE BLOOD COUNT 9.2 10^3/uL (4.0-10.0)
[2022-11-01 20:21] LABS: GC DNA AMPLIFICATION NEGATIVE (NEGATIVE)
== END ==
LOC: M PLALAB 14:03
PROVIDERS: ATTEND Obstetrics & Gynecology
DX: O09.512 Supervision of elderly primigravida, second trimester (principal)

== ENCOUNTER 2022-11-02 01:53 | Outpatient (CLI) | payer OTHER ==
[~2022-11-02] VITALS: Ht 165.1 cm; Wt 80.1 kg
[~2022-11-02 01:53] MED LIST changes: -LOVE0.4I2 SC; -PRENTAB9 PO
[2022-11-02 02:05] VITALS: BP 122/71
[2022-11-02] MEDS ORDERED: PRENTAB9 PO (02:32)
[2022-11-02] MEDS ORDERED: LOVE0.4I2 SC (02:32)
[2022-11-02] MEDS ORDERED: HOME MED LIST COMPLETE! XX SCH (02:35)
== END 2022-11-02 03:03 | disposition home or self-care (01) ==
LOC: M LDO 01:53
PROVIDERS: ATTEND Advanced Practice Midwife
DX: O26.892 Other specified pregnancy related conditions, second trimester (principal); R10.2 Pelvic and perineal pain; O09.511 Supervision of elderly primigravida, first trimester; Z88.2 Allergy status to sulfonamides; O22.32 Deep phlebothrombosis in pregnancy, second trimester; Z3A.26 26 weeks gestation of pregnancy
CPT/HCPCS: 59025; 81001; G0463

== ENCOUNTER → 2022-11-28 | Outpatient (CLI) | payer OTHER ==
[~2022-11-28] MED LIST changes: +LOVE0.4I2 SC; +PRENTAB9 PO
== END ==
LOC: M RAD 10:55
PROVIDERS: ATTEND Obstetrics & Gynecology
DX: O09.512 Supervision of elderly primigravida, second trimester (principal)

== ENCOUNTER 2022-12-13 16:09 | Outpatient (CLI) | payer OTHER ==
[~2022-12-13] VITALS: Ht 165.1 cm; Wt 83.0 kg
[2022-12-13 16:25] VITALS: BP 112/70
[2022-12-13] MEDS ORDERED: NICO2GUM MT (16:41)
[2022-12-13] MEDS ORDERED: BENA25CA4 PO (16:41)
[2022-12-13] MEDS ORDERED: [UNRECOGNIZED DRUG - OTHER] (16:41)
[2022-12-13] MEDS ORDERED: HOME MED LIST COMPLETE! XX SCH (16:45)
== END 2022-12-13 18:49 | disposition home or self-care (01) ==
LOC: M LDO 16:09
PROVIDERS: ATTEND Advanced Practice Midwife
DX: O40.3XX9 Polyhydramnios, third trimester, other fetus (principal); O09.513 Supervision of elderly primigravida, third trimester; Z86.718 Personal history of other venous thrombosis and embolism; Z3A.32 32 weeks gestation of pregnancy
CPT/HCPCS: 59025; 76819; G0463

== ENCOUNTER 2022-12-17 08:16 | Outpatient (CLI) | payer OTHER ==
[~2022-12-17] VITALS: Ht 165.1 cm; Wt 83.3 kg
[~2022-12-17 08:16] MED LIST changes: +BENA25CA4 PO; +NICO2GUM MT; +[UNRECOGNIZED DRUG - OTHER]
[2022-12-17 08:30] VITALS: BP 135/87
[2022-12-17] MEDS ORDERED: HOME MED LIST COMPLETE! XX SCH (11:45)
== END 2022-12-17 12:15 | disposition home or self-care (01) ==
LOC: M LDO 08:16
PROVIDERS: ATTEND Obstetrics & Gynecology
DX: O36.8130 Decreased fetal movements, third trimester, not applicable or unspecified (principal); O09.511 Supervision of elderly primigravida, first trimester; Z88.2 Allergy status to sulfonamides; Z88.8 Allergy status to other drugs, medicaments and biological substances; Z3A.33 33 weeks gestation of pregnancy
CPT/HCPCS: 59025; 76815; 81001; G0463

== ENCOUNTER 2022-12-26 17:14 | Outpatient (CLI) | payer OTHER ==
[~2022-12-26] VITALS: Ht 165.1 cm; Wt 85.5 kg
[~2022-12-26 17:14] MED LIST changes: -HYDR50TA70 PO
[2022-12-26 17:35] VITALS: BP 131/66
[2022-12-26] MEDS ORDERED: BENA25CA4 PO (17:35)
[2022-12-26] MEDS ORDERED: HOME MED LIST COMPLETE! XX SCH (17:35)
[2022-12-26 19:41] VITALS: BP 136/86
[2022-12-26 20:59] VITALS: BP 135/84
[2022-12-26] MEDS ORDERED: diphenhydrAMINE 25MG CAP PO ONE (22:00)
[2022-12-26 22:06] LABS: HEMATOCRIT 33.7 % (36.0-47.0); HEMOGLOBIN 11.4 g/dl (12.0-15.5); MEAN CORPUSCULAR HEMOGLOBIN 31.1 pg (27.0-33.0); MEAN CORPUSCULAR HGB CONC 33.8 g/dl (32.0-36.5); MEAN CORPUSCULAR VOLUME 92.1 fl (80.0-96.0); PLATELET COUNT, AUTOMATED 181 10^3/uL (150-450); RED BLOOD COUNT 3.66 10^6/uL (4.00-5.40); WHITE BLOOD COUNT 9.8 10^3/uL (4.0-10.0)
[2022-12-26 22:40] LABS: BLOOD UREA NITROGEN 10 MG/DL (9-23); CALCIUM LEVEL 8.3 MG/DL (8.5-10.1); CARBON DIOXIDE LEVEL 24 MMOL/L (20-31); CHLORIDE LEVEL 106 MMOL/L (98-107); GLOMERULAR FILTRATION RATE > 60.0 (>58); GLUCOSE, FASTING 108 MG/DL (60-100); POTASSIUM SERUM 3.2 MMOL/L (3.5-5.1); SODIUM LEVEL 139 MMOL/L (136-145)
[2022-12-26 22:43] VITALS: BP 130/76
[2022-12-26] MEDS ORDERED: ENOXAPARIN 80MG/0.8ML SYRINGE (J1650 PER 10MG) SC ONE (23:00)
[2022-12-27 05:08] VITALS: BP 123/80
[2022-12-27] MEDS ORDERED: HYDR50TA70 PO (14:45)
== END 2022-12-27 14:10 | disposition home or self-care (01) ==
LOC: M LDO 17:14
PROVIDERS: ATTEND Specialist
DX: O36.8130 Decreased fetal movements, third trimester, not applicable or unspecified (principal); O40.3XX9 Polyhydramnios, third trimester, other fetus; O09.513 Supervision of elderly primigravida, third trimester; Z3A.34 34 weeks gestation of pregnancy; Z86.718 Personal history of other venous thrombosis and embolism
CPT/HCPCS: 36415; 76815; 76819; 76820; 80048; 85027; J1650

== ENCOUNTER → 2022-12-26 | Outpatient (CLI) | payer OTHER ==
[~2022-12-26] MED LIST changes: +HYDR50TA70 PO
== END ==
LOC: M WHC 14:05
PROVIDERS: ATTEND Obstetrics & Gynecology
DX: O09.512 Supervision of elderly primigravida, second trimester (principal)

== ENCOUNTER → 2022-12-31 | Outpatient (CLI) | payer OTHER ==
[~2022-12-31] MED LIST changes: +HYDR50TA70 PO
== END ==
LOC: M WHC 10:48
PROVIDERS: ATTEND Obstetrics & Gynecology
DX: O09.513 Supervision of elderly primigravida, third trimester (principal)

== ENCOUNTER → 2023-01-08 | Outpatient (CLI) | payer OTHER | LOC: M WHC 07:46 | PROVIDERS: ATTEND Obstetrics & Gynecology | DX: O09.513 Supervision of elderly primigravida, third trimester (principal); Z3A.36 36 weeks gestation of pregnancy ==

== ENCOUNTER → 2023-01-09 | Outpatient (REF) | payer OTHER | LOC: M PLALAB 08:21 | PROVIDERS: ATTEND Obstetrics & Gynecology | DX: Z34.03 Encounter for supervision of normal first pregnancy, third trimester (principal) ==

== ENCOUNTER 2023-01-15 07:55 | Inpatient (IN) | payer OTHER ==
[2023-01-15] VITALS (9 sets, daily range): BP systolic 120–135; BP diastolic 69–84; TEMP 97.5; O2SAT 97–100
[~2023-01-15] VITALS: Ht 165.1 cm; Wt 85.0 kg
[2023-01-15] MEDS ORDERED: LACTATED RINGER'S 1000 ML IV STA (08:02)
[2023-01-15] MEDS ORDERED: BICITRA 30ML SOLN UDC PO ONE (08:05)
[2023-01-15] MEDS ORDERED: OXYTOCIN DRIP 30 UNITS in IV 1 EA IV PRN ×4 (08:05)
[2023-01-15] MEDS ORDERED: CARBOPROST TROMETHAMINE 250 MCG/ML AMP IM PRN (08:05)
[2023-01-15] MEDS ORDERED: TRANEXAMIC ACID INJection 1,000 MG in NS 100 ML IV PRN (08:05)
[2023-01-15] MEDS ORDERED: ceFAZolin SOD 2 GM in IV 1 EA IV ONE (08:05)
[2023-01-15] MEDS ORDERED: METHYLERGONOVINE MALEATE 0.2MG/ML 1ML VIAL IM PRN (08:05)
[2023-01-15] MEDS ORDERED: LR 1,000 ML IV SCH ×2 (08:05→11:35)
[2023-01-15 08:51] LABS: HEMATOCRIT 40.2 % (36.0-47.0); HEMOGLOBIN 13.6 g/dl (12.0-15.5); MEAN CORPUSCULAR HEMOGLOBIN 30.6 pg (27.0-33.0); MEAN CORPUSCULAR HGB CONC 33.8 g/dl (32.0-36.5); MEAN CORPUSCULAR VOLUME 90.3 fl (80.0-96.0); PLATELET COUNT, AUTOMATED 205 10^3/uL (150-450); RED BLOOD COUNT 4.45 10^6/uL (4.00-5.40); WHITE BLOOD COUNT 9.9 10^3/uL (4.0-10.0)
[2023-01-15] MEDS ORDERED: OXYTOCIN DRIP 30 UNITS in IV 1 EA IV SCH (10:25)
[2023-01-15] MEDS ORDERED: MOM 30ML SUSPENSION UDC PO PRN (10:25)
[2023-01-15] MEDS ORDERED: RHOGAM 300MCG (1500IU) INJ IM SCH (10:25)
[2023-01-15] MEDS ORDERED: SIMETHICONE 80MG CHEW TAB PO PRN (10:25)
[2023-01-15] MEDS ORDERED: METHYLERGONOVINE MALEATE 0.2 MG TAB PO PRN (10:25)
[2023-01-15] MEDS ORDERED: KETOROLAC 60MG 2ML VIAL As Ordered ONE (10:28)
[2023-01-15] MEDS ORDERED: ONDANSETRON 4MG 2ML VIAL As Ordered ONE (10:28)
[2023-01-15] MEDS ORDERED: MORPHINE PRES-FREE INJ 10 MG/10 ML VIAL As Ordered ONE (10:28)
[2023-01-15] MEDS ORDERED: ACETAMINOPHEN 1000MG 100ML IV BAG As Ordered ONE (10:28)
[2023-01-15] MEDS ORDERED: fentaNYL 100 MCG/2 ML INJECTION As Ordered ONE (10:37)
[2023-01-15] MEDS ORDERED: OXYTOCIN 30UNITS IN 0.9% NaCl 500ML IV BAG As Ordered ONE ×2 (10:56→11:13)
[2023-01-15] MEDS ORDERED: oxyCODONE 5MG TAB PO PRN (11:35)
[2023-01-15] MEDS ORDERED: fentaNYL 100 MCG/2 ML INJECTION IV PRN (11:35)
[2023-01-15] MEDS ORDERED: ONDANSETRON 4MG 2ML VIAL IV PRN (11:35)
[2023-01-15] MEDS: LR 1,000 ML IV SCH ×2 (16:34→18:25)
[2023-01-15] MEDS: KETOROLAC 30 MG/ML 1ML VIAL IV SCH ×2 (16:50→23:00)
[2023-01-15] MEDS: DOCUSATE SODIUM 100MG CAPSULE PO SCH (20:11)
[2023-01-16 02:00] VITALS: BP 95/54; O2SAT 99
[2023-01-16] MEDS: KETOROLAC 30 MG/ML 1ML VIAL IV SCH (05:07)
[2023-01-16 06:00] VITALS: BP 100/55; O2SAT 99
[2023-01-16 06:50] LABS: HEMATOCRIT 27.9 % (36.0-47.0); MEAN CORPUSCULAR HEMOGLOBIN 30.9 pg (27.0-33.0); MEAN CORPUSCULAR HGB CONC 33.3 g/dl (32.0-36.5); MEAN CORPUSCULAR VOLUME 92.7 fl (80.0-96.0); PLATELET COUNT, AUTOMATED 158 10^3/uL (150-450); RED BLOOD COUNT 3.01 10^6/uL (4.00-5.40); WHITE BLOOD COUNT 11.3 10^3/uL (4.0-10.0)
[2023-01-16 06:54] LABS: HEMOGLOBIN 9.3 g/dl (12.0-15.5)
[2023-01-16] MEDS: PRENATAL VITAMINS CHEWABLE TABLET PO SCH (08:45)
[2023-01-16] MEDS: DOCUSATE SODIUM 100MG CAPSULE PO SCH ×2 (08:45→20:48)
[2023-01-16] MEDS: ENOXAPARIN 80MG/0.8ML SYRINGE (J1650 PER 10MG) SC SCH ×2 (08:46→20:51)
[2023-01-16 10:00] VITALS: BP 135/61; O2SAT 99
[2023-01-16] MEDS: IBUPROFEN 800 MG TAB PO SCH ×2 (12:51→20:49)
[2023-01-16 14:00] VITALS: BP 138/81; O2SAT 98
[2023-01-16 18:00] VITALS: BP 140/81; O2SAT 99
[2023-01-16] MEDS: PERCOCET 5MG/325MG TAB PO PRN (18:16)
[2023-01-16 21:54] VITALS: BP 118/57; O2SAT 98
[2023-01-17 02:00] VITALS: BP 114/65; O2SAT 97
[2023-01-17] MEDS: PERCOCET 5MG/325MG TAB PO PRN ×3 (04:21→20:49)
[2023-01-17] MEDS: IBUPROFEN 800 MG TAB PO SCH ×3 (04:57→20:48)
[2023-01-17 06:00] VITALS: BP 122/70; O2SAT 98
[2023-01-17] MEDS: DOCUSATE SODIUM 100MG CAPSULE PO SCH ×2 (08:42→20:48)
[2023-01-17] MEDS: PRENATAL VITAMINS CHEWABLE TABLET PO SCH (08:42)
[2023-01-17] MEDS: ENOXAPARIN 80MG/0.8ML SYRINGE (J1650 PER 10MG) SC SCH ×2 (08:43→20:50)
[2023-01-17] MEDS ORDERED: MEASLES,MUMPS,RUBELLA VACCINE INJ (MMR-II) SC.IMMUN ONE (09:00)
[2023-01-17 18:00] VITALS: BP 138/82; O2SAT 99
[2023-01-18] MEDS: PERCOCET 5MG/325MG TAB PO PRN ×4 (04:29→18:15)
[2023-01-18] MEDS: IBUPROFEN 800 MG TAB PO SCH ×3 (04:29→20:42)
[2023-01-18 06:07] VITALS: BP 131/63; O2SAT 99
[2023-01-18 08:05] LABS: HEMATOCRIT 28.4 % (36.0-47.0); HEMOGLOBIN 9.5 g/dl (12.0-15.5); MEAN CORPUSCULAR HEMOGLOBIN 30.8 pg (27.0-33.0); MEAN CORPUSCULAR HGB CONC 33.5 g/dl (32.0-36.5); MEAN CORPUSCULAR VOLUME 92.2 fl (80.0-96.0); PLATELET COUNT, AUTOMATED 199 10^3/uL (150-450); RED BLOOD COUNT 3.08 10^6/uL (4.00-5.40); WHITE BLOOD COUNT 7.1 10^3/uL (4.0-10.0)
[2023-01-18] MEDS: DOCUSATE SODIUM 100MG CAPSULE PO SCH ×2 (08:09→20:42)
[2023-01-18] MEDS: PRENATAL VITAMINS CHEWABLE TABLET PO SCH (08:09)
[2023-01-18] MEDS: ENOXAPARIN 80MG/0.8ML SYRINGE (J1650 PER 10MG) SC SCH ×2 (11:07→20:42)
[2023-01-18 18:00] VITALS: BP 139/83; O2SAT 97
[2023-01-19] MEDS: PERCOCET 5MG/325MG TAB PO PRN ×2 (00:10→06:16)
[2023-01-19] MEDS: IBUPROFEN 800 MG TAB PO SCH ×3 (05:20→21:17)
[2023-01-19 06:08] VITALS: BP 112/59; O2SAT 96
[2023-01-19] MEDS: PRENATAL VITAMINS CHEWABLE TABLET PO SCH (08:18)
[2023-01-19] MEDS: DOCUSATE SODIUM 100MG CAPSULE PO SCH ×2 (08:18→21:16)
[2023-01-19] MEDS: ENOXAPARIN 80MG/0.8ML SYRINGE (J1650 PER 10MG) SC SCH ×2 (08:19→21:17)
[2023-01-19 09:26] LABS: HEMATOCRIT 27.5 % (36.0-47.0); HEMOGLOBIN 9.3 g/dl (12.0-15.5); MEAN CORPUSCULAR HEMOGLOBIN 31.2 pg (27.0-33.0); MEAN CORPUSCULAR HGB CONC 33.8 g/dl (32.0-36.5); MEAN CORPUSCULAR VOLUME 92.3 fl (80.0-96.0); PLATELET COUNT, AUTOMATED 195 10^3/uL (150-450); RED BLOOD COUNT 2.98 10^6/uL (4.00-5.40)
[2023-01-19 09:30] VITALS: BP 148/82
[2023-01-19 10:00] VITALS: BP 155/79
[2023-01-19] MEDS ORDERED: METOCLOPRAMIDE 10MG TAB PO PRN (10:25)
[2023-01-19] MEDS: SUMAtriptan SUCCINATE 25 MG TAB PO PRN ×3 (11:07→21:16)
[2023-01-19 18:00] VITALS: BP 156/74
[2023-01-20] MEDS: SUMAtriptan SUCCINATE 25 MG TAB PO PRN ×3 (03:55→19:41)
[2023-01-20] MEDS: IBUPROFEN 800 MG TAB PO SCH ×3 (05:04→21:04)
[2023-01-20] MEDS: PRENATAL VITAMINS CHEWABLE TABLET PO SCH (09:00)
[2023-01-20] MEDS: DOCUSATE SODIUM 100MG CAPSULE PO SCH ×2 (09:00→20:31)
[2023-01-20 10:00] VITALS: BP 152/64; O2SAT 98
[2023-01-20] MEDS: ENOXAPARIN 80MG/0.8ML SYRINGE (J1650 PER 10MG) SC SCH ×2 (10:24→20:56)
[2023-01-20 14:00] VITALS: BP 132/75; O2SAT 98
[2023-01-20] MEDS ORDERED: IBUP80TA PO (19:27)
[2023-01-20] MEDS ORDERED: PERCOCET PO (19:27)
[2023-01-20] MEDS ORDERED: LOVE0.6I2 SC (19:27)
[2023-01-20] MEDS ORDERED: DOCU-153 PO (19:33)
[2023-01-20] MEDS: PERCOCET 5MG/325MG TAB PO PRN (20:33)
== END 2023-01-20 21:53 | disposition home or self-care (01) | DRG 787 ==
LOC: M LDI 07:55 → M OBS 13:05
PROVIDERS: ADMIT Obstetrics & Gynecology; ATTEND Obstetrics & Gynecology
PROC: 0UB10ZX Excision of Left Ovary, Open Approach, Diagnostic (ICD-10-PCS; 2023-01-15)
PROC: 10D00Z1 Extraction of Products of Conception, Low, Open Approach (ICD-10-PCS; principal; 2023-01-15 09:30)
DX: O40.3XX0 Polyhydramnios, third trimester, not applicable or unspecified (principal); O99.354 Diseases of the nervous system complicating childbirth; N83.8 Other noninflammatory disorders of ovary, fallopian tube and broad ligament; O26.893 Other specified pregnancy related conditions, third trimester; G43.909 Migraine, unspecified, not intractable, without status migrainosus; Z37.0 Single live birth; Z3A.37 37 weeks gestation of pregnancy

== ENCOUNTER 2023-06-04 20:21 | Emergency (ER) | payer OTHER ==
[~2023-06-04] VITALS: Ht 165.1 cm; Wt 77.9 kg
[~2023-06-04 20:21] MED LIST changes: +DOCU-153 PO; +IBUP80TA PO; +LOVE0.6I2 SC; +PERCOCET PO
[2023-06-04 22:07] LABS: HEMOGLOBIN 13.6 g/dl (12.0-15.5); MEAN CORPUSCULAR HEMOGLOBIN 29.5 pg (27.0-33.0); MEAN CORPUSCULAR VOLUME 86.8 fl (80.0-96.0); PLATELET COUNT, AUTOMATED 235 10^3/uL (150-450); RED BLOOD COUNT 4.61 10^6/uL (4.00-5.40); WHITE BLOOD COUNT 5.4 10^3/uL (4.0-10.0)
[2023-06-04 22:34] LABS: ALBUMIN 3.6 G/DL (3.2-5.2); ALKALINE PHOSPHATASE 64 U/L (46-116); ALT/SGPT 21 U/L (7.0-40); AST/SGOT 22 U/L (<34); BILIRUBIN,TOTAL 0.5 MG/DL (0.3-1.2); BLOOD UREA NITROGEN 14 MG/DL (9-23); CALCIUM LEVEL 8.4 MG/DL (8.5-10.1); CARBON DIOXIDE LEVEL 26 MMOL/L (20-31); CHLORIDE LEVEL 105 MMOL/L (98-107); CREATININE FOR GFR 0.63 MG/DL (0.55-1.30); GLOMERULAR FILTRATION RATE > 60.0 (>58); GLUCOSE, FASTING 109 MG/DL (60-100); POTASSIUM SERUM 3.5 MMOL/L (3.5-5.1); SODIUM LEVEL 136 MMOL/L (136-145); TOTAL PROTEIN 6.5 G/DL (5.7-8.2)
[2023-06-04] MEDS ORDERED: NS 1,000 ML IV ONE (22:35)
[2023-06-04] MEDS ORDERED: ACETAMINOPHEN *IV* 1,000 MG in IV 1 EA IV ONE (23:05)
[2023-06-04] MEDS ORDERED: diphenhydrAMINE 50MG/ML VIAL IV ONE (23:05)
[2023-06-04] MEDS ORDERED: KETOROLAC 30 MG/ML 1ML VIAL IV ONE (23:05)
[2023-06-04] MEDS ORDERED: METOCLOPRAMIDE INJ 10MG/2ML VIAL IV ONE (23:05)
[2023-06-05 01:09] VITALS: BP 102/62; TEMP 97.2; O2SAT 97
== END 2023-06-05 01:33 | disposition home or self-care (01) ==
LOC: M ED 20:21
DX: R51.9 Headache, unspecified (principal); Z86.718 Personal history of other venous thrombosis and embolism; Z86.711 Personal history of pulmonary embolism; Z88.2 Allergy status to sulfonamides; Z88.8 Allergy status to other drugs, medicaments and biological substances
CPT/HCPCS: 71046; 80053; 85027; 87040; 87486; 87581; 87633; 87798; 87880; 96361; 96365; 96375; 99284; J0131; J1100; J1200; J1885; J2765

== ENCOUNTER 2024-01-14 13:29 | Emergency (ER) | payer OTHER ==
[~2024-01-14] VITALS: Ht 165.1 cm; Wt 78.4 kg
[2024-01-14 13:29] VITALS: BP 141/73; O2SAT 99
[~2024-01-14 13:29] MED LIST changes: -DOCU-153 PO; +STOO100C30 PO
[2024-01-14 15:17] LABS: BASO % 0.7 % (0.0-1.0); EOS # 0.1 10^3/uL (0.0-0.5); EOS % 2.2 % (0.0-3.0); HEMATOCRIT 42.4 % (36.0-47.0); HEMOGLOBIN 13.8 g/dl (12.0-15.5); LYMPH # 1.7 10^3/uL (1.5-5.0); LYMPH % 28.4 % (24.0-44.0); MEAN CORPUSCULAR HEMOGLOBIN 29.9 pg (27.0-33.0); MEAN CORPUSCULAR HGB CONC 32.5 g/dl (32.0-36.5); MONO # 0.4 10^3/uL (0.0-0.8); MONO % 7.6 % (2.0-8.0); NEUTROPHILS # 3.6 10^3/uL (1.5-8.5); NEUTROPHILS % 60.9 % (36.0-66.0); PLATELET COUNT, AUTOMATED 285 10^3/uL (150-450); RED BLOOD COUNT 4.61 10^6/uL (4.00-5.40); WHITE BLOOD COUNT 5.8 10^3/uL (4.0-10.0)
[2024-01-14 15:46] LABS: CK-MB VALUE MASS < 1.0 NG/ML (<3.6)
[2024-01-14 15:48] LABS: BLOOD UREA NITROGEN 16 MG/DL (9-23); CALCIUM LEVEL 9.2 MG/DL (8.5-10.1); CARBON DIOXIDE LEVEL 27 MMOL/L (20-31); CHLORIDE LEVEL 110 MMOL/L (98-107); CREATININE FOR GFR 0.71 MG/DL (0.55-1.30); GLOMERULAR FILTRATION RATE > 60.0 (>58); GLUCOSE, FASTING 96 MG/DL (60-100); POTASSIUM SERUM 4.3 MMOL/L (3.5-5.1); SODIUM LEVEL 139 MMOL/L (136-145)
[2024-01-14 15:50] LABS: THYROID STIMULATING HORMONE 0.508 uIU/ML (0.55-4.78)
[2024-01-14 15:51] LABS: FREE T4 1.19 NG/DL (0.89-1.76)
[2024-01-14 15:53] LABS: CPK CREATINE PHOSPHOKINASE 97 U/L (34-145); MB/CK RELATIVE INDEX 1.03 (< OR =4)
[2024-01-14 16:36] LABS: CK-MB VALUE MASS < 1.0 NG/ML (<3.6)
[2024-01-14 16:36] LABS: HCG, SERUM QUALITATIVE NEGATIVE (NEGATIVE)
[2024-01-14 16:38] LABS: CPK CREATINE PHOSPHOKINASE 86 U/L (34-145); MB/CK RELATIVE INDEX 1.16 (< OR =4)
[2024-01-14] MEDS ORDERED: ISOVUE-370 76% 100ML VIAL As Ordered ONE (17:47)
[2024-01-14 17:58] VITALS: TEMP 96.7
== END 2024-01-14 18:44 | disposition home or self-care (01) ==
LOC: M ED 13:29
DX: F41.9 Anxiety disorder, unspecified (principal); R07.89 Other chest pain; F10.10 Alcohol abuse, uncomplicated; Z88.2 Allergy status to sulfonamides; Z88.8 Allergy status to other drugs, medicaments and biological substances; Z79.1 Long term (current) use of non-steroidal anti-inflammatories (NSAID); Z79.810 Long term (current) use of selective estrogen receptor modulators (SERMs); Z79.899 Other long term (current) drug therapy
CPT/HCPCS: 36415; 71045; 71275; 80048; 82550; 82553; 84439; 84443; 84484; 84703; 85025; 93005; 93041; 94760; 99284; Q9967

== ENCOUNTER → 2024-03-10 | Outpatient (REF) | payer OTHER ==
[2024-03-15 16:42] LABS: HPV APTIMA Not Detected (Not Detected)
== END ==
LOC: M SFHCWAGY 15:31
PROVIDERS: ATTEND Obstetrics & Gynecology
DX: Z12.4 Encounter for screening for malignant neoplasm of cervix (principal)
CPT/HCPCS: 87624; G0123

== ENCOUNTER → 2024-06-22 | Outpatient (CLI) | payer OTHER ==
[2024-06-22 18:53] LABS: LUTEINIZING HORMONE 1.2 mIU/ML; THYROID STIMULATING HORMONE 0.857 uIU/ML (0.55-4.78)
[2024-06-22 18:54] LABS: PROLACTIN 4.88 NG/ML
[2024-06-22 18:55] LABS: FREE T4 1.11 NG/DL (0.89-1.76)
== END ==
LOC: M PLALAB 15:00
PROVIDERS: ATTEND Obstetrics & Gynecology
DX: N92.6 Irregular menstruation, unspecified (principal)

== ENCOUNTER 2024-07-20 05:54 | Emergency (ER) | payer OTHER ==
[~2024-07-20] VITALS: Ht 165.1 cm; Wt 78.2 kg
[2024-07-20] MEDS ORDERED: ONDANSETRON 4MG 2ML VIAL IV ONE (06:40)
[2024-07-20] MEDS: METOCLOPRAMIDE INJ 10MG/2ML VIAL IV ONE (06:50)
[2024-07-20] MEDS: NS (Normal Saline) 0.9% 1,000 ML IV ONE (06:51)
[2024-07-20 07:00] LABS: HEMATOCRIT 36.6 % (36.0-47.0); HEMOGLOBIN 12.6 g/dl (12.0-15.5); LYMPH # 0.5 10^3/uL (1.5-5.0); LYMPH % 15.9 % (24.0-44.0); MEAN CORPUSCULAR HEMOGLOBIN 30.4 pg (27.0-33.0); MEAN CORPUSCULAR HGB CONC 34.4 g/dl (32.0-36.5); MEAN CORPUSCULAR VOLUME 88.2 fl (80.0-96.0); MONO # 0.3 10^3/uL (0.0-0.8); MONO % 8.8 % (2.0-8.0); NEUTROPHILS # 2.1 10^3/uL (1.5-8.5); NEUTROPHILS % 74.9 % (36.0-66.0); PLATELET COUNT, AUTOMATED 199 10^3/uL (150-450); RED BLOOD COUNT 4.15 10^6/uL (4.00-5.40); WHITE BLOOD COUNT 2.8 10^3/uL (4.0-10.0)
[2024-07-20 07:17] LABS: LIPASE 26 U/L (12-53)
[2024-07-20 07:33] LABS: ALBUMIN 3.2 G/DL (3.2-5.2); ALKALINE PHOSPHATASE 47 U/L (35-104); ALT/SGPT 29 U/L (7.0-40); AST/SGOT 27 U/L (<34); BILIRUBIN,TOTAL 0.4 MG/DL (0.3-1.2); BLOOD UREA NITROGEN 12 MG/DL (9-23); CALCIUM LEVEL 7.7 MG/DL (8.5-10.1); CARBON DIOXIDE LEVEL 28 MMOL/L (20-31); CHLORIDE LEVEL 105 MMOL/L (98-107); GLOMERULAR FILTRATION RATE > 60.0 (>58); GLUCOSE, FASTING 91 MG/DL (60-100); POTASSIUM SERUM 2.8 MMOL/L (3.5-5.1); SODIUM LEVEL 141 MMOL/L (136-145); TOTAL PROTEIN 5.8 G/DL (5.7-8.2)
[2024-07-20] MEDS: KCL 10MEQ/100ML SWI (KRUN) 10 MEQ in IV 1 EA IV ONE (08:24)
[2024-07-20 09:57] VITALS: BP 145/73; TEMP 98.1; O2SAT 100
[2024-07-20] MEDS ORDERED: REGL5TAB2 PO (10:15)
[2024-07-20] MEDS: POTASSIUM CHLORIDE 10MEQ SR TABLET PO ONE (10:24)
== END 2024-07-20 10:33 | disposition home or self-care (01) ==
LOC: M ED 08:25
DX: R11.2 Nausea with vomiting, unspecified (principal); R19.7 Diarrhea, unspecified; Z88.2 Allergy status to sulfonamides; Z88.8 Allergy status to other drugs, medicaments and biological substances; Z79.1 Long term (current) use of non-steroidal anti-inflammatories (NSAID); Z79.899 Other long term (current) drug therapy; Z79.810 Long term (current) use of selective estrogen receptor modulators (SERMs)
CPT/HCPCS: 80053; 83690; 85025; 87486; 87507; 87581; 87633; 87798; 96361; 96365; 96366; 96375; 99284; J2765

== ENCOUNTER → 2024-08-05 | Outpatient (CLI) | payer OTHER ==
[~2024-08-05] MED LIST changes: +REGL5TAB2 PO
[2024-08-05 10:11] LABS: HEMATOCRIT 41.9 % (36.0-47.0); HEMOGLOBIN 13.6 g/dl (12.0-15.5); MEAN CORPUSCULAR HEMOGLOBIN 29.9 pg (27.0-33.0); MEAN CORPUSCULAR HGB CONC 32.5 g/dl (32.0-36.5); MEAN CORPUSCULAR VOLUME 92.1 fl (80.0-96.0); PLATELET COUNT, AUTOMATED 339 10^3/uL (150-450); RED BLOOD COUNT 4.55 10^6/uL (4.00-5.40)
[2024-08-05 10:50] LABS: CHOLESTEROL RISK RATIO 2.17 (<5); HDL CHOLESTEROL 65.3 MG/DL (>40); LDL CHOLESTEROL 68.5 MG/DL (<100); NON-HDL-C 76.7 MG/DL
== END ==
LOC: M PLALAB 08:59
PROVIDERS: ATTEND Physician Assistant
DX: Z68.28 Body mass index [BMI] 28.0-28.9, adult (principal)